=== PATIENT | female | born 1995 | race Caucasian/White ===

== ENCOUNTER → 2016-09-28 | Outpatient (REF) | payer OTHER | LOC: M SFHCCLAY 08:13 | PROVIDERS: ATTEND Nurse Practitioner | DX: K58.1 Irritable bowel syndrome with constipation (principal) ==

== ENCOUNTER 2016-10-27 23:19 | Emergency (ER) | payer OTHER ==
[2016-10-27] MEDS ORDERED: predniSONE 20 MG TAB As Ordered ONE (23:46)
[2016-10-27] MEDS ORDERED: METHOCARBAMOL 500 MG TAB As Ordered ONE (23:46)
[2016-10-27] MEDS ORDERED: ONDANSETRON 4 MG ORAL DISINTEGRATING TAB (S0181) As Ordered ONE (23:46)
[2016-10-27] MEDS ORDERED: traMADol 50 MG TAB As Ordered ONE (23:46)
[2016-10-28] MEDS ORDERED: NITROFURANTOIN (MACROBID) 100 MG CAP As Ordered ONE (00:37)
[2016-10-28 00:44] LABS: CONTROL LINE UCG INT CTR LINE PRESENT
[2016-10-28] MEDS ORDERED: KETOROLAC 30 MG/ML VIAL (J1885) As Ordered ONE (00:54)
[2016-10-28] MEDS ORDERED: MORPHINE 4 MG/ML 1ML SYRINGE As Ordered ONE (01:22)
--- NOTE | 2016-10-28 01:57 | EDDOCDS ---
Nurse's Notes [facility] Name: Elo Turner Age: 21 yrs Sex: Female : 1995 Arrival Date: 10/27/2016 Time: 23:19 Bed I2 / M2 Private MD: Candido Way Diagnosis: Lumbago with sciatica, left side Presentation: 10/27 23:26 Presenting complaint: Patient states: Left hip pain that radiates down leg. Started jo3 having issues 2 months ago and and pain became severe tonight. Acute neurological deficits are not present. Mechanism of Injury: No Mechanism of Injury. Adult Sepsis Screening: The patient does not have new or worsening altered mentation. Patient's respiratory rate is less than 22. Systolic blood pressure is greater than 100. Patient has a qSOFA score of 0- Negative Sepsis Screen. Suicide/Homicide risk assessment- the patient denies having any suicidal and/or homicidal ideations and does not present with any other emotional, behavioral or mental health complaints. Status: Patient is not a service desk specialist or dependent. Transition of care: patient was not received from another setting of care. 23:26 Acuity: ANGLE Level 4 jo3 23:26 Method Of Arrival: Walkin/Carried/Asstd jo3 Triage Assessment: 23:28 General: Appears uncomfortable, Behavior is appropriate for age, cooperative, crying. jo3 Pain: Pain currently is 10 out of 10 on a pain scale. HIV screening NA for this visit Offered previously. Neurological: Level of Consciousness is awake, alert, Oriented to person, place, time. Respiratory: Airway is patent Respiratory effort is even, unlabored. Derm: Skin is pink, warm & dry. 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 atenolol 50 mg Oral tab 1 tab once daily 2. Soma 350 mg Oral tab 1 tab prn 3. RONNIE (28) 3-0.02 mg Oral tab 1 tab once daily 4. tramadol 50 mg Oral tab q6hrs PRN - PMHx: fast HR with exercise; Hypertension; Migraines; - PSHx: 10 right knee surgeries; Colonoscopy x 2; left knee; - Social history: Smoking status: Patient states was never smoker of tobacco. No barriers to communication noted, The patient speaks fluent Spanish, Speaks appropriately for age. - Family history: Not pertinent. - : The pt / caregiver states he / she is not on anticoagulants. Home medication list is obtained from the patient. - Exposure Risk Screening:: None identified. Screenin/25 01:53 Screening information is obtained from the patient. Fall risk: No risks identified. slm Assistance ADL's: requires no assistance with activities of daily living. Abuse/DV Screen: The patient / caregiver reports he/she is: not in a situation that causes fear, pain or injury. Nutritional screening: No deficits noted. Advance Directives: Currently, there is no health care proxy. There is no active DNR order. There is no living will. There is no Power of Metalizing Machine Operator. Advance directive information has not previously been placed in an [facility] medical record. Further advance directive information is declined. home support is adequate. Assessment: 00:00 General: Appears uncomfortable, Behavior is cooperative. Pain:. slm 00:00 Pain: Location: left hip. Respiratory: No deficits noted. Musculoskeletal: Swelling slm absent. 01:51 General: Appears in no apparent distress, comfortable, Behavior is cooperative. slm General: pt ambulated out with steady gain pain improved . Respiratory: Airway is patent Respiratory effort is even, unlabored. Vital Signs: 10/27 23:20 BP 145 / 95; Pulse 149; Resp 18; Temp 99.4; Pulse Ox 100% ; Weight 86.18 kg; Height 5 jlm ft. 9 in. (175.26 cm); Pain 10/10; 23:35 Pulse 126 AP; jo3 10/28 01:01 BP 147 / 96; Pulse 98; Resp 18; Temp 98.4; Pulse Ox 99% on R/A; slm 01:54 BP 145 / 94; Pulse 101; Resp 18; Temp 98.9; Pulse Ox 99% ; Pain 3/10; slm 01:56 Pain 3/10; slm 10/27 23:20 Body Mass Index 28.06 (86.18 kg, 175.26 cm) [facility] Vitals: 10/27 23:20 Log In Time: October 27, 2016 at 23:20. [facility] ED Course: 23:19 Patient visited by Erna Welch, Surgical Garment Inspector. [facility] 23:[address] is Private Physician. jlm 23:19 Patient moved to Waiting jlm 23:22 Patient moved to Pre RCE jlm 23:27 Triage Initiated jo3 23:30 Patient moved to I2 / M2 jo3 23:31 Celso Davis RPA-C is PHCP. ck7 23:31 Abdirashid Davenport DO is Attending Physician. ck7 23:31 Patient visited by Celso Davis RPA-C. ck7 23:51 UA Sent. slm 23:59 Amarilis Ontiveros LPN is Primary Nurse. slm 10/28 00:00 Patient visited by Amarilis Ontiveros LPN. slm 00:31 UCG- In Lab Sent. slm 00:42 Patient visited by Celso Davis RPA-C. ck7 00:[address] is Referral Physician. ck7 01:02 Patient visited by Amarilis Ontiveros LPN. slm 01:20 PHCP role handed off by Celso Davis RPA-C mo1 01:20 Joaquin Childress PA is PHCP. mo1 01:[address] is Referral Physician. mo1 01:54 The patient / caregiver is instructed regarding the plan of care and ED course. Patient slm has correct armband on for positive identification. Bed in low position. Call light in reach. Side rails up X 1. 01:54 No IV's were initiated during this patient's visit. No procedures done that require slm assistance. Administered Medications: 10/27 23:59 Drug: traMADol 50 mg [tramadol 50 mg tablet (1 tabs)] Route: PO; slm 23:59 Drug: Methocarbamol 1 grams [methocarbamol 500 mg tablet (2 tabs)] Route: PO; slm 23:59 Drug: predniSONE 40 mg [prednisone 20 mg tablet (2 tabs)] Route: PO; slm 23:59 Drug: Ondansetron ODT 4 mg [ondansetron 4 mg disintegrating tablet (1 tabs)] Route: PO; slm 10/28 00:39 Drug: Nitrofurantoin 100 mg Route: PO; slm 00:59 Drug: ketorolac 60 mg [ketorolac 30 mg/mL (1 mL) injection solution (2 mL)] Route: IM; slm Site: right gluteus; 01:26 Drug: morphine 4 mg [morphine 4 mg/mL intravenous cartridge (1 mL)] Route: IM; Site: slm right deltoid; 01:56 Follow up: Pain 11/10 Adult slm Order Results: Lab Order: UA; SPEC'M 10/27/16 23:48 Test: APPEARANCE, URINE; Value: CLOUDY; Range: CLEAR; Abnormal: Above high normal; Status: F Test: COLOR, URINE; Value: YELLOW; Range: YELLOW; Status: F Test: PH,URINE; Value: 5.0; Range: 5.0-9.0; Units: UNITS; Status: F Test: SPECIFIC GRAVITY URINE AUTO; Value: 1.030; Range: 1.002-1.035; Status: F Test: PROTEIN, URINE AUTO; Value: NEGATIVE; Range: NEGATIVE; Units: mg/dL; Status: F Test: GLUCOSE, URINE (UA) AUTO; Value: NEGATIVE; Range: NEGATIVE; Units: mg/dL; Status: F Test: KETONE, URINE AUTO; Value: TRACE; Range: NEGATIVE; Abnormal: Above high normal; Units: mg/dL; Status: F Test: UROBILINOGEN, URINE AUTO; Value: 0.2; Range: 0.0-2.0; Units: mg/dL; Status: F Test: BILIRUBIN, URINE AUTO; Value: NEGATIVE; Range: NEGATIVE; Status: F Test: NITRITE, URINE AUTO; Value: NEGATIVE; Range: NEGATIVE; Status: F Test: LEUKOCYTE ESTERASE, URINE AUTO; Value: 1+; Range: NEGATIVE; Abnormal: Above high normal; Status: F Test: BLOOD, URINE BLOOD; Value: NEGATIVE; Range: NEGATIVE; Status: F Test: WBC, URINE AUTO; Value: 6; Range: 0-3; Abnormal: Above high normal; Units: /HPF; Status: F Test: RBC, URINE AUTO; Value: 2; Range: 0-3; Units: /HPF; Status: F Test: BACTERIA, URINE AUTO; Value: 2+; Range: NEGATIVE; Abnormal: Above high normal; Status: F Test: SQUAMOUS EPITHELIAL CELL UR AU; Value: 2; Range: 0-6; Units: /HPF; Status: F Test: MUCUS, URINE; Value: LARGE; Range: NEGATIVE; Status: F Test: HYALINE CAST, URINE AUTO; Value: 0; Range: 0-1; Units: /LPF; Status: F Lab Order: UCG- In Lab; SPEC'M 10/28/16 00:00 Test: URINE PREG TEST; Value: NEGATIVE; Range: NEGATIVE; Status: F Outcome: 00:53 Discharge ordered by Provider. ck7 01:39 Discharge ordered by Provider. mo1 01:51 Discharge Assessment: Patient awake, alert and oriented x 3. No cognitive and/or slm functional deficits noted. Patient verbalized understanding of disposition instructions. patient administered narcotics - yes. Pt provided with safe discharge. The following High Risk Discharge criteria are identified: None. Discharged to home ambulatory, with family. Condition: good Condition: improved. Discharge instructions given to patient, Instructed on discharge instructions, follow up and referral plans. medication usage, no driving heavy equipment, Demonstrated understanding of instructions, medications, Pt was receptive of discharge instructions/ teaching. Prescriptions given X 3. No special radiology studies were completed. Property :Personal belongings accompany Pt. 01:56 Patient left the ED. [facility] Signatures: Cuca Hansen,RN RN jo3 Celso Davis, RPA-C RPA-Cck7 Joaquin Childress PA PA mo1 Amarilis Ontiveros,IMANI MEDICAL RECORDS COORDINATOR slm Erna Welch, Surgical Garment Inspector [facility] MTDD
--- NOTE | 2016-10-28 01:57 | EDDOCDS ---
Physician Documentation [facility] Name: Elo Turner Age: 21 yrs Sex: Female : 1995 Arrival Date: 10/27/2016 Time: 23:19 Bed I2 / M2 Private MD: Candido Way Disposition: 10/28/16 01:39 Discharged to Home/Self Care. Impression: Lumbago with sciatica, left side. - Condition is Stable. - Discharge Instructions: Back Pain, Adult, Sciatica. - Prescriptions for [place] 5- 325 mg Oral Tablet - take 1 tablet by ORAL route every 6 hours As needed MDD: 4 tabs; 20 tablet. Robaxin 500 mg Oral Tablet - take 2 tablet by ORAL route every 6 hours As needed; 40 tablet. Macrobid 100 mg Oral Capsule - take 100 milligram by ORAL route every 12 hours for 10 days; 20 capsule. - Medication Reconciliation, Local Pharmacy Hours, Work Release Form - 2 day form. - Follow up: [address]; When: Call to arrange an appointment; Reason: Recheck today's complaints, Continuance of care. - Problem is an acute exacerbation. - Symptoms have improved. Historical: - Allergies: Amoxicillin (Vomit); - Home Meds: 1. atenolol 50 mg Oral tab 1 tab once daily 2. Soma 350 mg Oral tab 1 tab prn 3. RONNIE (28) 3-0.02 mg Oral tab 1 tab once daily 4. tramadol 50 mg Oral tab q6hrs PRN - PMHx: fast HR with exercise; Hypertension; Migraines; - PSHx: 10 right knee surgeries; Colonoscopy x 2; left knee; - Social history: Smoking status: Patient states was never smoker of tobacco. No barriers to communication noted, The patient speaks fluent Upper Sorbian, Speaks appropriately for age. - Family history: Not pertinent. - : The pt / caregiver states he / she is not on anticoagulants. Home medication list is obtained from the patient. - Exposure Risk Screening:: None identified. 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 9 in. (175.26 cm); Pain 10/10; 23:35 Pulse 126 AP; jo3 10/28 01:01 BP 147 / 96; Pulse 98; Resp 18; Temp 98.4; Pulse Ox 99% on R/A; slm 01:54 BP 145 / 94; Pulse 101; Resp 18; Temp 98.9; Pulse Ox 99% ; Pain 3/10; slm 01:56 Pain 3/10; slm 10/27 23:20 Body Mass Index 28.06 (86.18 kg, 175.26 cm) [facility] MDM: 10/27 23:41 traMADol 50 mg PO once ordered. ck7 23:41 Methocarbamol 1 grams PO once ordered. ck7 23:41 predniSONE 40 mg PO once; administer with food or milk ordered. ck7 23:41 Ondansetron ODT Oral Disintegrating Tablet 4 mg PO once ordered. ck7 23:42 UA Ordered. EDMS 23:44 Spine. Lumbosacral, Complete Ordered. EDMS 10/28 00:03 UA Reviewed. ck7 00:27 Nitrofurantoin 100 mg PO once ordered. ck7 00:29 UCG- In Lab Ordered. EDMS 00:50 UCG- In Lab Reviewed. ck7 00:52 ketorolac 60 mg IM once ordered. ck7 00:52 Recheck Vital Signs, perform reassessment and enter into [employer] ordered. ck7 01:00 Financial registration complete. hs2 01:21 morphine 4 mg IM once ordered. mo1 Administered Medications: 10/27 23:59 Drug: traMADol 50 mg [tramadol 50 mg tablet (1 tabs)] Route: PO; [facility] 23:59 Drug: Methocarbamol 1 grams [methocarbamol 500 mg tablet (2 tabs)] Route: PO; m 23:59 Drug: predniSONE 40 mg [prednisone 20 mg tablet (2 tabs)] Route: PO; m 23:59 Drug: Ondansetron ODT 4 mg [ondansetron 4 mg disintegrating tablet (1 tabs)] Route: PO; [facility] 10/28 00:39 Drug: Nitrofurantoin 100 mg Route: PO; [facility] 00:59 Drug: ketorolac 60 mg [ketorolac 30 mg/mL (1 mL) injection solution (2 mL)] Route: IM; slm Site: right gluteus; 01:26 Drug: morphine 4 mg [morphine 4 mg/mL intravenous cartridge (1 mL)] Route: IM; Site: slm right deltoid; :56 Follow up: Pain 11/10 Adult slm Signatures: Dispatcher [employer] Cuca Durham,TIANA RN jo3 Celso Davis, RPA-C RPA-Cck7 Joaquin Childress PA PA mo1 Amarilis Ontiveros,IMANI CLINICAL CYTOGENETICIST slm Janet Beyer, Reg Reg hs2 MTDD
--- NOTE | 2016-10-28 07:25 | REP ---
Clinical: Deformity swelling. Trauma. Technique: AP, lateral, bilateral oblique and cone down views of the lumbosacral spine. Findings: Moderate focal degenerative disc osteophyte complex at the L5-S1 level includes endplate sclerosis with disc space narrowing and anterior spurring. Alignment and lordosis maintained. There is no acute fracture / compression injury or subluxation. Impression: Moderate focal degenerative changes at the L5-S1 level. Signed by Eber Sue MD 10/28/2016 07:17 A
--- NOTE | 2016-10-30 02:57 | EDDOCDS ---
Physician Documentation [facility] Name: Elo Turner Age: 21 yrs Sex: Female : 1995 Arrival Date: 10/27/2016 Time: 23:19 Bed I2 / M2 Private MD: Candido Way Disposition: 10/28/16 01:39 Discharged to Home/Self Care. Impression: Lumbago with sciatica, left side. - Condition is Stable. - Discharge Instructions: Back Pain, Adult, Sciatica. - Prescriptions for [place] 5- 325 mg Oral Tablet - take 1 tablet by ORAL route every 6 hours As needed MDD: 4 tabs; 20 tablet. Robaxin 500 mg Oral Tablet - take 2 tablet by ORAL route every 6 hours As needed; 40 tablet. Macrobid 100 mg Oral Capsule - take 100 milligram by ORAL route every 12 hours for 10 days; 20 capsule. - Medication Reconciliation, Local Pharmacy Hours, Work Release Form - 2 day form. - Follow up: [address]; When: Call to arrange an appointment; Reason: Recheck today's complaints, Continuance of care. - Problem is an acute exacerbation. - Symptoms have improved. Historical: - Allergies: Amoxicillin (Vomit); - Home Meds: 1. atenolol 50 mg Oral tab 1 tab once daily 2. Soma 350 mg Oral tab 1 tab prn 3. RONNIE (28) 3-0.02 mg Oral tab 1 tab once daily 4. tramadol 50 mg Oral tab q6hrs PRN - PMHx: fast HR with exercise; Hypertension; Migraines; - PSHx: 10 right knee surgeries; Colonoscopy x 2; left knee; - Social history: Smoking status: Patient states was never smoker of tobacco. No barriers to communication noted, The patient speaks fluent Nepali, Speaks appropriately for age. - Family history: Not pertinent. - : The pt / caregiver states he / she is not on anticoagulants. Home medication list is obtained from the patient. - Exposure Risk Screening:: None identified. 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 9 in. (175.26 cm); Pain 10/10; 23:35 Pulse 126 AP; jo3 10/28 01:01 BP 147 / 96; Pulse 98; Resp 18; Temp 98.4; Pulse Ox 99% on R/A; slm 01:54 BP 145 / 94; Pulse 101; Resp 18; Temp 98.9; Pulse Ox 99% ; Pain 3/10; slm 01:56 Pain 3/10; slm 10/27 23:20 Body Mass Index 28.06 (86.18 kg, 175.26 cm) [facility] MDM: 10/27 23:41 traMADol 50 mg PO once ordered. ck7 23:41 Methocarbamol 1 grams PO once ordered. ck7 23:41 predniSONE 40 mg PO once; administer with food or milk ordered. ck7 23:41 Ondansetron ODT Oral Disintegrating Tablet 4 mg PO once ordered. ck7 23:42 UA Ordered. EDMS 23:44 Spine. Lumbosacral, Complete Ordered. EDMS 10/28 00:03 UA Reviewed. ck7 00:27 Nitrofurantoin 100 mg PO once ordered. ck7 00:29 UCG- In Lab Ordered. EDMS 00:50 UCG- In Lab Reviewed. ck7 00:52 ketorolac 60 mg IM once ordered. ck7 00:52 Recheck Vital Signs, perform reassessment and enter into [employer] ordered. ck7 01:00 Financial registration complete. hs2 01:21 morphine 4 mg IM once ordered. mo1 04:57 [facility] Payment Agreement was scanned into [employer] and attached to record. hs2 08:34 T-Sheet-- Draft Copy was scanned into [employer] and attached to record. [facility] Administered Medications: 10/27 23:59 Drug: traMADol 50 mg [tramadol 50 mg tablet (1 tabs)] Route: PO; slm 23:59 Drug: Methocarbamol 1 grams [methocarbamol 500 mg tablet (2 tabs)] Route: PO; slm 23:59 Drug: predniSONE 40 mg [prednisone 20 mg tablet (2 tabs)] Route: PO; slm 23:59 Drug: Ondansetron ODT 4 mg [ondansetron 4 mg disintegrating tablet (1 tabs)] Route: PO; m 10/28 00:39 Drug: Nitrofurantoin 100 mg Route: PO; slm 00:59 Drug: ketorolac 60 mg [ketorolac 30 mg/mL (1 mL) injection solution (2 mL)] Route: IM; slm Site: right gluteus; 01:26 Drug: morphine 4 mg [morphine 4 mg/mL intravenous cartridge (1 mL)] Route: IM; Site: slm right deltoid; 01:56 Follow up: Pain 11/10 Adult sl Signatures: Dispatcher [employer] EDCuca Palma RN RN joCelso Clifton, RPA-C RPA-Cck7 Joaquin Childress PA PA mo1 Amarilis Ontiveros,LEARNING DEVELOPMENT SPECIALIST LEARNING DEVELOPMENT SPECIALIST [facility] Janet Beyer, Reg Reg hs2 Trini Myles The chart was reviewed and I authenticate all verbal orders and agree with the evaluation and treatment provided.Attachments: 04:57 [facility] Payment Agreement hs2 08:34 T-Sheet-- Draft Copy [facility] Chart Complete MTDD
--- NOTE | 2016-10-30 02:57 | EDDOCDS ---
[facility] Name: Elo Turner Age: 21 yrs Sex: Female : 1995 Arrival Date: 10/27/2016 Time: 23:19 Bed I2 / M2 Private MD: Candido Way Diagnosis: Lumbago with sciatica, left side Presentation: 10/27 23:26 Presenting complaint: Patient states: Left hip pain that radiates down leg. Started jo3 having issues 2 months ago and and pain became severe tonight. Acute neurological deficits are not present. Mechanism of Injury: No Mechanism of Injury. Adult Sepsis Screening: The patient does not have new or worsening altered mentation. Patient's respiratory rate is less than 22. Systolic blood pressure is greater than 100. Patient has a qSOFA score of 0- Negative Sepsis Screen. Suicide/Homicide risk assessment- the patient denies having any suicidal and/or homicidal ideations and does not present with any other emotional, behavioral or mental health complaints. 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 Transition of care: patient was not received from another setting of care. 23:26 Acuity: ANGLE Level 4 jo3 23:26 Method Of Arrival: Walkin/Carried/Asstd jo3 Triage Assessment: 23:28 General: Appears uncomfortable, Behavior is appropriate for age, cooperative, crying. jo3 Pain: Pain currently is 10 out of 10 on a pain scale. HIV screening NA for this visit Offered previously. Neurological: Level of Consciousness is awake, alert, Oriented to person, place, time. Respiratory: Airway is patent Respiratory effort is even, unlabored. Derm: Skin is pink, warm & dry. 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 atenolol 50 mg Oral tab 1 tab once daily 2. Soma 350 mg Oral tab 1 tab prn 3. RONNIE (28) 3-0.02 mg Oral tab 1 tab once daily 4. tramadol 50 mg Oral tab q6hrs PRN - PMHx: fast HR with exercise; Hypertension; Migraines; - PSHx: 10 right knee surgeries; Colonoscopy x 2; left knee; - Social history: Smoking status: Patient states was never smoker of tobacco. No barriers to communication noted, The patient speaks fluent Divehi, Speaks appropriately for age. - Family history: Not pertinent. - : The pt / caregiver states he / she is not on anticoagulants. Home medication list is obtained from the patient. - Exposure Risk Screening:: None identified. Screenin/25 01:53 Screening information is obtained from the patient. Fall risk: No risks identified. slm Assistance ADL's: requires no assistance with activities of daily living. Abuse/DV Screen: The patient / caregiver reports he/she is: not in a situation that causes fear, pain or injury. Nutritional screening: No deficits noted. Advance Directives: Currently, there is no health care proxy. There is no active DNR order. There is no living will. There is no Power of Grain Cleaner. Advance directive information has not previously been placed in an [facility] medical record. Further advance directive information is declined. home support is adequate. Assessment: 00:00 General: Appears uncomfortable, Behavior is cooperative. Pain:. slm 00:00 Pain: Location: left hip. Respiratory: No deficits noted. Musculoskeletal: Swelling slm absent. 01:51 General: Appears in no apparent distress, comfortable, Behavior is cooperative. slm General: pt ambulated out with steady gain pain improved . Respiratory: Airway is patent Respiratory effort is even, unlabored. Vital Signs: 10/27 23:20 BP 145 / 95; Pulse 149; Resp 18; Temp 99.4; Pulse Ox 100% ; Weight 86.18 kg; Height 5 jlm ft. 9 in. (175.26 cm); Pain 10/10; 23:35 Pulse 126 AP; jo3 10/28 01:01 BP 147 / 96; Pulse 98; Resp 18; Temp 98.4; Pulse Ox 99% on R/A; slm 01:54 BP 145 / 94; Pulse 101; Resp 18; Temp 98.9; Pulse Ox 99% ; Pain 3/10; slm 01:56 Pain 3/10; slm 10/27 23:20 Body Mass Index 28.06 (86.18 kg, 175.26 cm) [facility] Vitals: 10/27 23:20 Log In Time: October 27, 2016 at 23:20. [facility] ED Course: 23:19 Patient visited by Erna Welch, Cargo Broker. [facility] 23:[address] is Private Physician. jlm 23:19 Patient moved to Waiting jlm 23:22 Patient moved to Pre RCE jlm 23:27 Triage Initiated jo3 23:30 Patient moved to I2 / M2 jo3 23:31 Celso Davis RPA-C is PHCP. ck7 23:31 Abdirashid Davenport DO is Attending Physician. ck7 23:31 Patient visited by Celso Davis RPA-C. ck7 23:51 UA Sent. slm 23:59 Amarilis Ontiveros LPN is Primary Nurse. slm 02 00:00 Patient visited by Amarilis Ontiveros LPN. slm 00:31 UCG- In Lab Sent. slm 00:42 Patient visited by Celso Davis RPA-C. ck7 00:[address] is Referral Physician. ck7 01:02 Patient visited by Amarilis Ontiveros LPN. slm 01:20 PHCP role handed off by Celso Davis RPA-C mo1 01:20 Joaquin Childress PA is PHCP. mo1 01:[address] is Referral Physician. mo1 01:54 The patient / caregiver is instructed regarding the plan of care and ED course. Patient slm has correct armband on for positive identification. Bed in low position. Call light in reach. Side rails up X 1. 01:54 No IV's were initiated during this patient's visit. No procedures done that require slm assistance. 04:57 [facility] Payment Agreement was scanned into PayPay and attached to record. hs2 07:34 Spine. Lumbosacral, Complete Returned. EDMS 08:34 T-Sheet-- Draft Copy was scanned into PayPay and attached to record. [facility] Administered Medications: 10/27 23:59 Drug: traMADol 50 mg [tramadol 50 mg tablet (1 tabs)] Route: PO; slm 23:59 Drug: Methocarbamol 1 grams [methocarbamol 500 mg tablet (2 tabs)] Route: PO; slm 23:59 Drug: predniSONE 40 mg [prednisone 20 mg tablet (2 tabs)] Route: PO; slm 23:59 Drug: Ondansetron ODT 4 mg [ondansetron 4 mg disintegrating tablet (1 tabs)] Route: PO; [facility] 10/28 00:39 Drug: Nitrofurantoin 100 mg Route: PO; [facility] 00:59 Drug: ketorolac 60 mg [ketorolac 30 mg/mL (1 mL) injection solution (2 mL)] Route: IM; [facility] Site: right gluteus; 01:26 Drug: morphine 4 mg [morphine 4 mg/mL intravenous cartridge (1 mL)] Route: IM; Site: slm right deltoid; 01:56 Follow up: Pain 11/10 Adult [facility] Order Results: Lab Order: UA; SPEC'M 10/27/16 23:48 Test: APPEARANCE, URINE; Value: CLOUDY; Range: CLEAR; Abnormal: Above high normal; Status: F Test: COLOR, URINE; Value: YELLOW; Range: YELLOW; Status: F Test: PH,URINE; Value: 5.0; Range: 5.0-9.0; Units: UNITS; Status: F Test: SPECIFIC GRAVITY URINE AUTO; Value: 1.030; Range: 1.002-1.035; Status: F Test: PROTEIN, URINE AUTO; Value: NEGATIVE; Range: NEGATIVE; Units: mg/dL; Status: F Test: GLUCOSE, URINE (UA) AUTO; Value: NEGATIVE; Range: NEGATIVE; Units: mg/dL; Status: F Test: KETONE, URINE AUTO; Value: TRACE; Range: NEGATIVE; Abnormal: Above high normal; Units: mg/dL; Status: F Test: UROBILINOGEN, URINE AUTO; Value: 0.2; Range: 0.0-2.0; Units: mg/dL; Status: F Test: BILIRUBIN, URINE AUTO; Value: NEGATIVE; Range: NEGATIVE; Status: F Test: NITRITE, URINE AUTO; Value: NEGATIVE; Range: NEGATIVE; Status: F Test: LEUKOCYTE ESTERASE, URINE AUTO; Value: 1+; Range: NEGATIVE; Abnormal: Above high normal; Status: F Test: BLOOD, URINE BLOOD; Value: NEGATIVE; Range: NEGATIVE; Status: F Test: WBC, URINE AUTO; Value: 6; Range: 0-3; Abnormal: Above high normal; Units: /HPF; Status: F Test: RBC, URINE AUTO; Value: 2; Range: 0-3; Units: /HPF; Status: F Test: BACTERIA, URINE AUTO; Value: 2+; Range: NEGATIVE; Abnormal: Above high normal; Status: F Test: SQUAMOUS EPITHELIAL CELL UR AU; Value: 2; Range: 0-6; Units: /HPF; Status: F Test: MUCUS, URINE; Value: LARGE; Range: NEGATIVE; Status: F Test: HYALINE CAST, URINE AUTO; Value: 0; Range: 0-1; Units: /LPF; Status: F Lab Order: UCG- In Lab; SPEC'M 10/28/16 00:00 Test: URINE PREG TEST; Value: NEGATIVE; Range: NEGATIVE; Status: F Radiology Order: Spine. Lumbosacral, Complete Test: Spine. Lumbosacral, Complete REASON FOR EXAMINATION: Deformity/Swelling; Clinical: Deformity swelling. Trauma.; ; Technique: AP, lateral, bilateral oblique and cone down views of the lumbosacral; spine.; ; Findings:; Moderate focal degenerative disc osteophyte complex at the L5-S1 level includes; endplate sclerosis with disc space narrowing and anterior spurring. Alignment; and lordosis maintained. There is no acute fracture / compression injury or; subluxation.; ; Impression:; Moderate focal degenerative changes at the L5-S1 level.; ; ; Signed by; Eber Sue MD 10/28/2016 07:17 A; Outcome: 00:53 Discharge ordered by Provider. ck7 01:39 Discharge ordered by Provider. mo1 01:51 Discharge Assessment: Patient awake, alert and oriented x 3. No cognitive and/or slm functional deficits noted. Patient verbalized understanding of disposition instructions. patient administered narcotics - yes. Pt provided with safe discharge. The following High Risk Discharge criteria are identified: None. Discharged to home ambulatory, with family. Condition: good Condition: improved. Discharge instructions given to patient, Instructed on discharge instructions, follow up and referral plans. medication usage, no driving heavy equipment, Demonstrated understanding of instructions, medications, Pt was receptive of discharge instructions/ teaching. Prescriptions given X 3. No special radiology studies were completed. Property :Personal belongings accompany Pt. 01:56 Patient left the ED. slm Signatures: Dispatcher [employer] EDMS Ccua Hansen RN RN jo3 Celso Davis, RPA-C RPA-Cck7 Joaquin Childress PA PA mo1 Amarilis Ontiveros,BOWL TURNER BOWL TURNER slErna Hernandez, Cargo Broker Unit jlm Janet Beyer, Reg Reg hs2 Shameka, Trini floyd Chart Complete MTDD
--- NOTE | 2016-10-30 02:57 | EDDOCDS ---
Physician Documentation [facility] Name: Elo Turner Age: 21 yrs Sex: Female : 1995 Arrival Date: 10/27/2016 Time: 23:19 Bed I2 / M2 Private MD: Candido Way Disposition: 10/28/16 01:39 Discharged to Home/Self Care. Impression: Lumbago with sciatica, left side. - Condition is Stable. - Discharge Instructions: Back Pain, Adult, Sciatica. - Prescriptions for [place] 5- 325 mg Oral Tablet - take 1 tablet by ORAL route every 6 hours As needed MDD: 4 tabs; 20 tablet. Robaxin 500 mg Oral Tablet - take 2 tablet by ORAL route every 6 hours As needed; 40 tablet. Macrobid 100 mg Oral Capsule - take 100 milligram by ORAL route every 12 hours for 10 days; 20 capsule. - Medication Reconciliation, Local Pharmacy Hours, Work Release Form - 2 day form. - Follow up: [address]; When: Call to arrange an appointment; Reason: Recheck today's complaints, Continuance of care. - Problem is an acute exacerbation. - Symptoms have improved. Historical: - Allergies: Amoxicillin (Vomit); - Home Meds: 1. atenolol 50 mg Oral tab 1 tab once daily 2. Soma 350 mg Oral tab 1 tab prn 3. RONNIE (28) 3-0.02 mg Oral tab 1 tab once daily 4. tramadol 50 mg Oral tab q6hrs PRN - PMHx: fast HR with exercise; Hypertension; Migraines; - PSHx: 10 right knee surgeries; Colonoscopy x 2; left knee; - Social history: Smoking status: Patient states was never smoker of tobacco. No barriers to communication noted, The patient speaks fluent Mohawk, Speaks appropriately for age. - Family history: Not pertinent. - : The pt / caregiver states he / she is not on anticoagulants. Home medication list is obtained from the patient. - Exposure Risk Screening:: None identified. 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 9 in. (175.26 cm); Pain 10/10; 23:35 Pulse 126 AP; jo3 10/28 01:01 BP 147 / 96; Pulse 98; Resp 18; Temp 98.4; Pulse Ox 99% on R/A; slm 01:54 BP 145 / 94; Pulse 101; Resp 18; Temp 98.9; Pulse Ox 99% ; Pain 3/10; slm 01:56 Pain 3/10; slm 10/27 23:20 Body Mass Index 28.06 (86.18 kg, 175.26 cm) [facility] MDM: 10/27 23:41 traMADol 50 mg PO once ordered. ck7 23:41 Methocarbamol 1 grams PO once ordered. ck7 23:41 predniSONE 40 mg PO once; administer with food or milk ordered. ck7 23:41 Ondansetron ODT Oral Disintegrating Tablet 4 mg PO once ordered. ck7 23:42 UA Ordered. EDMS 23:44 Spine. Lumbosacral, Complete Ordered. EDMS 10/28 00:03 UA Reviewed. ck7 00:27 Nitrofurantoin 100 mg PO once ordered. ck7 00:29 UCG- In Lab Ordered. EDMS 00:50 UCG- In Lab Reviewed. ck7 00:52 ketorolac 60 mg IM once ordered. ck7 00:52 Recheck Vital Signs, perform reassessment and enter into [place] ordered. ck7 01:00 Financial registration complete. hs2 01:21 morphine 4 mg IM once ordered. mo1 04:57 [facility] Payment Agreement was scanned into [employer] and attached to record. hs2 08:34 T-Sheet-- Draft Copy was scanned into Syntricity and attached to record. [facility] Administered Medications: 10/27 23:59 Drug: traMADol 50 mg [tramadol 50 mg tablet (1 tabs)] Route: PO; slm 23:59 Drug: Methocarbamol 1 grams [methocarbamol 500 mg tablet (2 tabs)] Route: PO; slm 23:59 Drug: predniSONE 40 mg [prednisone 20 mg tablet (2 tabs)] Route: PO; slm 23:59 Drug: Ondansetron ODT 4 mg [ondansetron 4 mg disintegrating tablet (1 tabs)] Route: PO; m 10/28 00:39 Drug: Nitrofurantoin 100 mg Route: PO; slm 00:59 Drug: ketorolac 60 mg [ketorolac 30 mg/mL (1 mL) injection solution (2 mL)] Route: IM; slm Site: right gluteus; 01:26 Drug: morphine 4 mg [morphine 4 mg/mL intravenous cartridge (1 mL)] Route: IM; Site: slm right deltoid; 01:56 Follow up: Pain 11/10 Adult sl Signatures: Dispatcher [employer] EDCuca Palma RN RN joCelso Clifton, RPA-C RPA-Cck7 Joaquin Childress PA PA mo1 Amarilis Ontiveros,MATE FIRST MATE FIRST [facility] Janet Beyer, Reg Reg hs2 Trini Myles The chart was reviewed and I authenticate all verbal orders and agree with the evaluation and treatment provided.Attachments: 04:57 [facility] Payment Agreement hs2 08:34 T-Sheet-- Draft Copy [facility] Chart Complete MTDD
== END 2016-10-28 01:56 | disposition home or self-care (01) ==
LOC: M ED 23:19
DX: M54.42 Lumbago with sciatica, left side (principal); N39.0 Urinary tract infection, site not specified; I10 Essential (primary) hypertension; G43.909 Migraine, unspecified, not intractable, without status migrainosus; Z79.899 Other long term (current) drug therapy; Z79.3 Long term (current) use of hormonal contraceptives; Z88.0 Allergy status to penicillin
CPT/HCPCS: 72110; 81001; 84703; 96372; 99284; J1885

== ENCOUNTER → 2016-11-15 | Outpatient (REF) | payer OTHER | LOC: M SFHCWAGY 15:48 | PROVIDERS: ATTEND Nurse Practitioner Family | DX: Z12.4 Encounter for screening for malignant neoplasm of cervix (principal); Z11.3 Encounter for screening for infections with a predominantly sexual mode of transmission | CPT/HCPCS: 87491; 87591; G0123 ==

== ENCOUNTER 2017-01-12 21:46 | Emergency (ER) | payer BC, OTHER ==
[~2017-01-12] VITALS: Ht 177.8 cm; Wt 81.6 kg
[2017-01-12] MEDS ORDERED: TRAM50TA2 (22:05)
[2017-01-12] MEDS ORDERED: HYDR-3713 (22:05)
[2017-01-12] MEDS ORDERED: ATEN50TA2 (22:05)
[2017-01-12] MEDS ORDERED: CARI350T20 (22:05)
[2017-01-12] MEDS ORDERED: NIKK1TAB (22:05)
[2017-01-12] MEDS ORDERED: MORPHINE 4 MG/ML 1ML SYRINGE IV ONE (23:00)
[2017-01-12] MEDS ORDERED: KETOROLAC 30 MG/ML VIAL (J1885) IV ONE (23:00)
[2017-01-12] MEDS ORDERED: ONDANSETRON 4MG/2ML VIAL (J2405) As Ordered ONE (23:34)
[2017-01-12] MEDS ORDERED: ONDANSETRON 4MG/2ML VIAL (J2405) IV ONE (23:45)
[2017-01-13 01:00] LABS: BASO % 0.3 % (0.0-1.0); EOS # 0.2 K/mm3 (0.0-0.50); EOS % 2.1 % (0.0-3.0); LARGE UNSTAINED CELL # 0.2 K/mm3 (0.0-0.4); LARGE UNSTAINED CELL % 1.9 % (0.0-4.0); LYMPH # 2.5 K/mm3 (1.5-6.5); LYMPH % 28.5 % (24.0-44.0); MEAN CORPUSCULAR HEMOGLOBIN 29.5 pg (27.0-33.0); MEAN CORPUSCULAR VOLUME 89.6 fl (80.0-96.0); MONO # 0.5 K/mm3 (0.0-0.8); MONO % 5.6 % (0.0-5.0); NEUTROPHILS # 5.4 K/mm3 (1.8-7.7); NEUTROPHILS % 61.5 % (36.0-66.0); PLATELET COUNT, AUTOMATED 264 k/mm3 (150-450); RED CELL DISTRIBUTION WIDTH 12.6 % (11.5-14.5); WHITE BLOOD COUNT 8.7 K/mm3 (4.0-10.0)
[2017-01-13 01:27] LABS: ANION GAP 8 MEQ/L (8-16); BLOOD UREA NITROGEN 16 MG/DL (7-18); CALCIUM LEVEL 8.5 MG/DL (8.5-10.1); CARBON DIOXIDE LEVEL 28 MEQ/L (21-32); CHLORIDE LEVEL 107 MEQ/L (98-107); CREATININE FOR GFR 0.74 MG/DL (0.55-1.02); GLOMERULAR FILTRATION RATE > 60.0 (>60); GLUCOSE, FASTING 84 MG/DL (70-105); POTASSIUM SERUM 4.4 MEQ/L (3.5-5.1); SODIUM LEVEL 143 MEQ/L (136-145)
[2017-01-13] MEDS ORDERED: HYDROmorphone HCL 1 MG/ML SYRINGE (J1170) IV PRN (01:30)
--- NOTE | 2017-01-13 01:30 | REPUSA ---
HISTORY: Trauma. COMPARISON: None. TECHNIQUE: Multiple thin-section contiguous helically-acquired axially-displayed computed tomographic images of the cervical spine are obtained from skull base inferiorly through T1, with images filmed at soft tissue and bone window. 2D Sagittal and coronal reformatted images are performed. FINDINGS: There is normal cervical vertebral body height and alignment on this supine, non-weight bearing exam. Vertebral body mineralization is normal. All of the intervertebral disc spaces have normal height and contour. There is no herniated nucleus p ulposus, canal or foraminal stenosis. No paraspinal masses or collections. IMPRESSION: Normal CT of the cervical spine. Thank you for your kind referral of this patient.
[2017-01-13] MEDS ORDERED: VALI5TAB PO (02:30)
[2017-01-13] MEDS ORDERED: NAPR500T PO (02:30)
[2017-01-13] MEDS ORDERED: OXYCODONE/APAP 5MG/325MG(BULK FOR ED) 1 TABLET PO ONE (02:30)
[2017-01-13] MEDS ORDERED: PERC5TAB6 PO (02:30)
[2017-01-13 02:42] VITALS: BP 129/82
== END 2017-01-13 02:43 | disposition home or self-care (01) ==
LOC: M ED 21:46
DX: S16.1XXA Strain of muscle, fascia and tendon at neck level, initial encounter (principal); X58.XXXA Exposure to other specified factors, initial encounter; Y92.89 Other specified places as the place of occurrence of the external cause; Y93.89 Activity, other specified; Y99.8 Other external cause status; Z88.0 Allergy status to penicillin; Z79.899 Other long term (current) drug therapy
CPT/HCPCS: 70450; 72125; 80048; 85025; 96374; 96375; 99283; J1170; J1885; J2405; J3360

== ENCOUNTER 2017-03-16 00:51 | Emergency (ER) | payer BC, OTHER ==
[~2017-03-16] VITALS: Ht 175.3 cm; Wt 88.6 kg
[~2017-03-16 00:51] MED LIST: ATEN50TA2; CARI350T; HYDR-3713; NAPR500T PO; NIKK1TAB; PERC5TAB12 PO; TRAM50TA2; VALI5TAB PO
[2017-03-16] MEDS ORDERED: SOMA350T PO (00:59)
[2017-03-16] MEDS ORDERED: PERCOCET 5MG/325MG TAB PO ONE (06:15)
[2017-03-16] MEDS ORDERED: diazePAM 5 MG TAB PO ONE (06:15)
[2017-03-16] MEDS ORDERED: KETOROLAC 60 MG/2 ML VIAL (J1885) IM ONE (06:15)
[2017-03-16] MEDS ORDERED: ONDANSETRON 4 MG ORAL DISINTEGRATING TAB (S0181) PO ONE (06:30)
[2017-03-16] MEDS ORDERED: MORPHINE 4 MG/ML 1ML SYRINGE IM ONE (07:00)
[2017-03-16] MEDS ORDERED: MORPHINE 10 MG/ML 1ML VIAL IM ONE (07:00)
[2017-03-16] MEDS ORDERED: VALI5TAB PO (07:41)
[2017-03-16] MEDS ORDERED: IBUP80TA PO (07:41)
[2017-03-16] MEDS ORDERED: PERC5TAB12 PO (07:41)
[2017-03-16 08:21] VITALS: BP 119/77
== END 2017-03-16 08:23 | disposition home or self-care (01) ==
LOC: M ED 00:51
DX: S33.5XXA Sprain of ligaments of lumbar spine, initial encounter (principal); X50.0XXA Overexertion from strenuous movement or load, initial encounter; Y92.89 Other specified places as the place of occurrence of the external cause; Y93.89 Activity, other specified; Y99.8 Other external cause status; J45.909 Unspecified asthma, uncomplicated; G43.909 Migraine, unspecified, not intractable, without status migrainosus; M54.9 Dorsalgia, unspecified; G89.29 Other chronic pain; Z88.0 Allergy status to penicillin; Z79.899 Other long term (current) drug therapy; Z79.1 Long term (current) use of non-steroidal anti-inflammatories (NSAID)
CPT/HCPCS: 96372; 99282; J1885

== ENCOUNTER → 2017-05-16 | Outpatient (CLI) | payer BC, OTHER ==
[~2017-05-16] MED LIST changes: +IBUP80TA PO; +SOMA350T PO
--- NOTE | 2017-06-02 00:31 | ECWPNPC ---
PATIENT NAME: DAVI FOUNTAIN : 1995 GENDER: FEMALE VISIT DATE: 05/16/2017 DISCHARGE DATE: 05/16/17 1451 VISIT LOCKED DATE TIME: PHYSICIAN: ROBERT ODELL RESOURCE: ROBERT ODELL REASON FOR APPOINTMENT 1. LOW BACK HISTORY OF PRESENT ILLNESS FALL RISK SCREENING: SCREENING :NO FALLS IN THE PAST YEAR PAIN SCREENING: PATIENT HAS A COMPLAINT OF ACUTE OR CHRONIC PAIN :YES TODAY'S VISIT: NOTES: REFERRED TO [facility] FROM DR ZACHARY HURT FOR LOW BACK PAIN . HAS ALSO BEEN SEEN BY DR STODDARD AT [facility] THE SAME ISSUE AND THEY ARE REQUESTING INTERVENTIONAL TREATMENT. PCP IS DR DELGADO MILTON. ONSET WAS 6-7 YEARS AGO. NO SPECIFIC INJRY BUT WAS VERY ACTIVE IN [employer]ULT[employer]ORTS. PAIN WAS GRADUALLY GETTING WORSE UNTIL 1 YEAR AGO WHEN STARTED WORKING. WAS HAVING SUCH SEVERE PAIN COULD NOT STAND STRAIGHT OR WALK. HAS SI JOINT PAIN IN LEFT, MORE NUMBNESS IN RIGHT TO LEVEL OF THE FOOT, OR SEATED ON THE TOILET. PAIN CAN DISRUPT SLEEP. USES MUSCLE RELAXER AT NITE. HAS HAD CHIRO, TPI, PT, INTRALAMIAR EPIDURAL WITHOUT FLUOUO AT [facility]. HAD NO RELIEF FROM THIS. . CURRENT MEDICATIONS TAKING TRAMADOL HCL 50 MG TABLET 1 TABLET NEEDED ORALLY EVERY 6 HRS- FROM ORTHO TAKING HAIR SKIN AND NAILS FORMULA - TABLET 1 ORALLY DAILY TAKING ATENOLOL 50 MG TABLET 1 TABLET ORALLY DAILY TAKING GABAPENTIN 400 MG CAPSULE 1 CAPSULE ORALLY THREE TIMES A DAY TAKING HYDROCODONE-ACETAMINOPHEN 5-325 MG TABLET 1 TABLET NEEDED ORALLY EVERY 6 HRS TAKING AZELASTINE HCL 0.1 % SOLUTION 1 PUFF IN EACH NOSTRIL NASALLY TWICE A DAY TAKING ELVIN 3-0.02 MG TABLET 1 TABLET ORALLY ONCE A DAY TAKING IBUPROFEN 800 MG TABLET 1 TABLET WITH FOOD OR MILK ORALLY THREE TIMES A DAY TAKING CARISOPRODOL 350 MG TABLET 1 TABLET NEEDED ORALLY FOUR TIMES A DAY TAKING IRON 1 TAB ORAL TAKING PROAIR HFA 108 (90 BASE) MCG/ACT AEROSOL SOLUTION 2 PUFFS NEEDED INHALATION EVERY 4 HRS NOT-TAKING SOMA 350 MG TABLET 1 TABLET NEEDED ORALLY FOUR TIMES A DAY- FROM ORTHO NOT-TAKING MULTIVITAMIN ADULT - TABLET 1 ORALLY DAILY/OCC NOT-TAKING RONNIE 3-0.02 MG TABLET 1 TABLET ORALLY ONCE A DAY FOR CONTINUOUS USE SKIPPPING PLACEBOS NOT-TAKING AMITIZA 8 MCG CAPSULE 1 CAPSULE WITH FOOD ORALLY TWICE A DAY MEDICATION LIST REVIEWED AND RECONCILED WITH THE PATIENT PAST MEDICAL HISTORY PCL INJURED MARCH 2010 FIRST CONCUSSION JULY 2012 SECOND CONCUSSION SEPTEMBER 2012 WITH CONCUSION SYNDROME SX ONE MONTH AFTER. TACHYCARDIA BORDERLINE HYPERTENSION MENSTRUAL MORRIS ALLERGIES AMOXICILLIN: NAUSEA/VOMITING: SIDE EFFECTS SURGICAL HISTORY RIGHT KNEE 01/03/12 LEFT KNEE 2010 PICA KNEE....HAD ARTHROSCOPY IN JUNE 2012 COLONOSCOPY 2012 RIGHT KNEE SURGERY X 2 2013 LUNG ASPIRATION 2013 RIGHT KNEE SURGERY 2016 FAMILY HISTORY FATHER: ALIVE 51 YRS, HYPERTENSION, BEING TESTED FOR M.S., DIAGNOSED WITH HYPERTENSION, HEART DISEASE MOTHER: ALIVE 47 YRS, DIABETES, PRIOR TO GASTRIC BYPASS, DIAGNOSED WITH HYPERTENSION SIBLINGS: BROTHER WILSONS DISEASE HTN 2 BROTHER(S) - HEALTHY. NON-CONTRIBUTORY MOM-HX ANEMIA, BROTHERS- HX HTN, WILSONS DISEASE. SOCIAL HISTORY GENERAL: TOBACCO USE ARE YOU A:NONSMOKER NEVER SMOKER ARE YOU A:NONSMOKER NEVER SMOKER ARE YOU A:NONSMOKER NEVER SMOKER ARE YOU A:NONSMOKER NEVER SMOKER BMI CARE GOAL FOLLOW-UP ABOVE NORMAL BMI FOLLOW-UPGIVING ENCOURAGEMENT TO EXERCISE ABOVE NORMAL BMI FOLLOW-UPGIVING ENCOURAGEMENT TO EXERCISE ABOVE NORMAL BMI FOLLOW-UPGIVING ENCOURAGEMENT TO EXERCISE ABOVE NORMAL BMI FOLLOW-UPGIVING ENCOURAGEMENT TO EXERCISE ALCOHOL SCREENING DID YOU HAVE A DRINK CONTAINING ALCOHOL IN THE PAST YEAR?YES HOW OFTEN DID YOU HAVE A DRINK CONTAINING ALCOHOL IN THE PAST YEAR?MONTHLY OR LESS (1 POINT) HOW MANY DRINKS DID YOU HAVE ON A TYPICAL DAY WHEN YOU WERE DRINKING IN THE PAST YEAR?1 OR 2 (0 POINTS) HOW OFTEN DID YOU HAVE SIX OR MORE DRINKS ON ONE OCCASION IN THE PAST YEAR?NEVER (0 POINTS) POINTS1 INTERPRETATIONNEGATIVE DID YOU HAVE A DRINK CONTAINING ALCOHOL IN THE PAST YEAR?YES HOW OFTEN DID YOU HAVE A DRINK CONTAINING ALCOHOL IN THE PAST YEAR?MONTHLY OR LESS (1 POINT) HOW MANY DRINKS DID YOU HAVE ON A TYPICAL DAY WHEN YOU WERE DRINKING IN THE PAST YEAR?1 OR 2 (0 POINTS) HOW OFTEN DID YOU HAVE SIX OR MORE DRINKS ON ONE OCCASION IN THE PAST YEAR?NEVER (0 POINTS) POINTS1 INTERPRETATIONNEGATIVE DID YOU HAVE A DRINK CONTAINING ALCOHOL IN THE PAST YEAR?YES HOW OFTEN DID YOU HAVE A DRINK CONTAINING ALCOHOL IN THE PAST YEAR?MONTHLY OR LESS (1 POINT) HOW MANY DRINKS DID YOU HAVE ON A TYPICAL DAY WHEN YOU WERE DRINKING IN THE PAST YEAR?1 OR 2 (0 POINTS) HOW OFTEN DID YOU HAVE SIX OR MORE DRINKS ON ONE OCCASION IN THE PAST YEAR?NEVER (0 POINTS) POINTS1 INTERPRETATIONNEGATIVE DID YOU HAVE A DRINK CONTAINING ALCOHOL IN THE PAST YEAR?YES HOW OFTEN DID YOU HAVE A DRINK CONTAINING ALCOHOL IN THE PAST YEAR?MONTHLY OR LESS (1 POINT) HOW MANY DRINKS DID YOU HAVE ON A TYPICAL DAY WHEN YOU WERE DRINKING IN THE PAST YEAR?1 OR 2 (0 POINTS) HOW OFTEN DID YOU HAVE SIX OR MORE DRINKS ON ONE OCCASION IN THE PAST YEAR?NEVER (0 POINTS) POINTS1 INTERPRETATIONNEGATIVE RECREATIONAL DRUG USE DENIES. CAFFEINE DENIES. SEXUAL HX HAD SEX IN THE LAST 12 MONTHS (VAGINAL, ORAL, OR ANAL)?NO HAVE YOU EVER HAD AN STD?NO LMP:10/31/2016 HAD SEX IN THE LAST 12 MONTHS (VAGINAL, ORAL, OR ANAL)?NO HAVE YOU EVER HAD AN STD?NO LMP:10/31/2016 HAD SEX IN THE LAST 12 MONTHS (VAGINAL, ORAL, OR ANAL)?NO HAVE YOU EVER HAD AN STD?NO LMP:10/31/2016 HAD SEX IN THE LAST 12 MONTHS (VAGINAL, ORAL, OR ANAL)?NO HAVE YOU EVER HAD AN STD?NO LMP:10/31/2016 HIV / HEP-C SCREENING HIV TEST OFFERED TO PATIENT:YES DATE OFFERED:04/20/2017 TEST ACCEPTED:NO REASON:PATIENT DECLINED HEP-C TEST OFFERED TO PATIENT:YES DATE OFFERED:04/20/2017 TEST ACCEPTED:NO REASON:PATIENT DECLINED HIV TEST OFFERED TO PATIENT:YES DATE OFFERED:04/20/2017 TEST ACCEPTED:NO REASON:PATIENT DECLINED HEP-C TEST OFFERED TO PATIENT:YES DATE OFFERED:04/20/2017 TEST ACCEPTED:NO REASON:PATIENT DECLINED HIV TEST OFFERED TO PATIENT:YES DATE OFFERED:04/20/2017 TEST ACCEPTED:NO REASON:PATIENT DECLINED HEP-C TEST OFFERED TO PATIENT:YES DATE OFFERED:04/20/2017 TEST ACCEPTED:NO REASON:PATIENT DECLINED HIV TEST OFFERED TO PATIENT:YES DATE OFFERED:04/20/2017 TEST ACCEPTED:NO REASON:PATIENT DECLINED HEP-C TEST OFFERED TO PATIENT:YES DATE OFFERED:04/20/2017 TEST ACCEPTED:NO REASON:PATIENT DECLINED 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 DIET: DIET MAKEDA. EXERCISE: CARDIO AND STRENGTH. MARITAL STATUS: SINGLE. OTHERS AT HOME: FATHER, MOTHER, SIBLING-BROTHER. PETS: 1 DOG--3 CATS. TENRIISM JUDAISM. LANGUAGE OCCITAN. EDUCATION LEVEL OF EDUCATION: CURRENTLY IN [place] [employer] LEVEL OF EDUCATION: CURRENTLY IN [place] [employer] LEVEL OF EDUCATION: CURRENTLY IN [place] [employer] LEVEL OF EDUCATION: CURRENTLY IN [employer] LEARNING BARRIERS / SPECIAL NEEDS CHANGE FROM LAST VISIT?NO 04/20/2017 BARRIERS TO LEARNING?NO HEARING IMPAIRED?NO VISION IMPAIRED?YES :CORRECTIVE LENSES COGNITIVELY IMPAIRED?NO READINESS TO LEARN?YES LEARNING PREFERENCES?NO LEARNING CAPABILITIES PRESENT?YES EMOTIONAL BARRIERS?NO SPECIAL DEVICES?NO MANUFACTURING TEST TECHNICIAN NEEDED?NO CHANGE FROM LAST VISIT?NO 04/20/2017 BARRIERS TO LEARNING?NO HEARING IMPAIRED?NO VISION IMPAIRED?YES :CORRECTIVE LENSES COGNITIVELY IMPAIRED?NO READINESS TO LEARN?YES LEARNING PREFERENCES?NO LEARNING CAPABILITIES PRESENT?YES EMOTIONAL BARRIERS?NO SPECIAL DEVICES?NO MANUFACTURING TEST TECHNICIAN NEEDED?NO CHANGE FROM LAST VISIT?NO 04/20/2017 BARRIERS TO LEARNING?NO HEARING IMPAIRED?NO VISION IMPAIRED?YES :CORRECTIVE LENSES COGNITIVELY IMPAIRED?NO READINESS TO LEARN?YES LEARNING PREFERENCES?NO LEARNING CAPABILITIES PRESENT?YES EMOTIONAL BARRIERS?NO SPECIAL DEVICES?NO MANUFACTURING TEST TECHNICIAN NEEDED?NO CHANGE FROM LAST VISIT?NO 04/20/2017 BARRIERS TO LEARNING?NO HEARING IMPAIRED?NO VISION IMPAIRED?YES :CORRECTIVE LENSES COGNITIVELY IMPAIRED?NO READINESS TO LEARN?YES LEARNING PREFERENCES?NO LEARNING CAPABILITIES PRESENT?YES EMOTIONAL BARRIERS?NO SPECIAL DEVICES?NO MANUFACTURING TEST TECHNICIAN NEEDED?NO NEW PATIENT PAIN DIARY PATIENT DESCRIBES PAIN :BURNING, HAVE IT ALL THE TIME, SHARP, STABBING, THROBBING, SHOOTING FROM 0-10, WHAT LEVEL IS YOUR PAIN TODAY?7 PRECIPITATING FACTORS SITTING AND STANDING FOR LONG PERIODS ALLEVIATING FACTORS NOT MUCH, MEDICATIONS IMPACT ON FUNCTION DECREASED ACTIVITY LEVEL IS THERE A CHANCE YOU COULD BE ? NO HAVE YOU BEEN SICK IN THE LAST WEEK (COLD, COUGH, FEVER, FLU, ETC) NO ANY CHANGE IN BOWEL OR BLADDER CONTROL? NO ARE YOU ALLERGIC TO SHELLFISH OR IV DYE? NO ARE YOU DIABETIC? NO DO YOU HAVE A PACEMAKER OR DEFIBRILLATOR? NO ANY NEW PROBLEMS WITH MEDICINES OR NEW ALLERGIES NO ANY NEW PATTERNS OF PAIN OR NUMBNESS? YES, NUMBNESS AND TINGLING SHOOTING DOWN INTO FEET IN THE LAST TWO WEEKS, RIGHT SIDE AFFECTED MORE THAN LEFT ANY CHANGE IN YOUR MEDICAL CONDITION? NO HAVE YOU FALLEN IN THE LAST 6 MONTHS? NO DO YOU USE ANY TYPE OF TOBACCO (SMOKE, SMOKELESS, CHEW, ETC.) NO ARE YOU ABUSED, NEGLECTED, OR IN AN UNSAFE ENVIRONMENT? NO DO YOU HAVE THOUGHTS OF HURTING YOURSELF OR SOMEONE ELSE? NO DO YOU NEED ANY PRESCRIPTIONS? POSSIBLE TO MANAGE SOMA? PAIN CLINIC PFS, CLERGY, PUBLIC HEALTH REFERRALS WAS THE PROVIDER NOTIFIED OF ANY PERTINENT INFO?YES HAS THE PATIENT BEEN EDUCATED REGARDING HIS/HER PLAN OF CARE?YES PLEASE DOCUMENT ANY ADDTIONAL DETAILS.PLEASE FREE TEXT IN THE NOTES SECTION. NEW PATIENT, ORIENTED TO PAIN CENTER. HAS THE PATIENT BEEN EDUCATED REGARDING PAIN, THE RISK FOR PAIN, THE IMPORTANCE OF EFFECTIVE PAIN MANAGEMENT, AND THE PAIN ASSESSMENT PROCESS?YES PLEASE DOCUMENT ANY ADDTIONAL DETAILS. NEW PATIENT PACKET GIVEN REVIEWED BY: HALIE. ADVANCE DIRECTIVES HEALTH CARE PROXY?NO WOULD YOU LIKE MORE INFORMATION?NO DO YOU HAVE A DNR?NO WOULD YOU LIKE MORE INFORMATION?NO LIVING WILL?NO WOULD YOU LIKE MORE INFORMATION?NO POWER OF CELL TECHNICIAN?NO WOULD YOU LIKE MORE INFORMATION?NO HEALTH CARE PROXY?NO WOULD YOU LIKE MORE INFORMATION?NO DO YOU HAVE A DNR?NO WOULD YOU LIKE MORE INFORMATION?NO LIVING WILL?NO WOULD YOU LIKE MORE INFORMATION?NO POWER OF CELL TECHNICIAN?NO WOULD YOU LIKE MORE INFORMATION?NO HEALTH CARE PROXY?NO WOULD YOU LIKE MORE INFORMATION?NO DO YOU HAVE A DNR?NO WOULD YOU LIKE MORE INFORMATION?NO LIVING WILL?NO WOULD YOU LIKE MORE INFORMATION?NO POWER OF CELL TECHNICIAN?NO WOULD YOU LIKE MORE INFORMATION?NO HEALTH CARE PROXY?NO WOULD YOU LIKE MORE INFORMATION?NO DO YOU HAVE A DNR?NO WOULD YOU LIKE MORE INFORMATION?NO LIVING WILL?NO WOULD YOU LIKE MORE INFORMATION?NO POWER OF CELL TECHNICIAN?NO WOULD YOU LIKE MORE INFORMATION?NO TRAVEL OUTSIDE US: YES. DOMESTIC VIOLENCE DENIES. HOSPITALIZATION/MAJOR DIAGNOSTIC PROCEDURE SURGERY REVIEW OF SYSTEMS REVIEWED BY: PROVIDER: ROBERT TOWNSEND . CONSTITUTIONAL: ANY CHANGE IN YOUR MEDICAL CONDITION? NO . CHILLS NO . FEVER NO . INFECTION: DO YOU HAVE NEW INFECTIONS? NO . DO YOU HAVE HISTORY OF MRSA? NO . MUSCULOSKELETAL: ANY NEW PATTERNS OF PAIN OR NUMBNESS? YES, . SYTEMIC LUPUS NO . GASTROENTEROLOGY: GENERAL HX OF IBS-C UNDER CONTROL . ANY NEW CHANGE IN BOWEL CONTROL? NO . BARRETTS ESOPHAGUS NO . CIRRHOSIS NO . HEPATITIS NO . LIVER FAILURE NO . ACID REFLUX NO . UNEXPLAINED WEIGHT LOSS NO . GENITOURINARY: ANY NEW CHANGE IN BLADDER CONTROL? NO . IS THERE A CHANCE YOU COULD BE ? NO . HEMATOLOGY/LYMPH: DO YOU TAKE ANY BLOOD THINNERS? (FOR EXAMPLE- COUMADIN, PLAVIX, AGGRENOX, PLATEL, PRADAXA, OR XARELTO) NO . WHEN WAS YOUR LAST DOSE? DATE: TIME: . LOW PLATELET COUNT NO . SICKLE CELL DISEASE NO . VON WILLIEBRANDS NO . FACTOR V LEIDEN NO . THALLASEMIA NO . ANEMIA NO . EASY BRUISING NO . NEUROLOGY: HAVE YOU FALLEN IN THE PAST 6 MONTHS? NO . ANY NEW EXTREMITY NUMBNESS OR WEAKNESS? NO . HEAD INJURY NO . DEMENTIA NO . CEREBRAL PALSY NO . MULTIPLE SCLEROSIS NO . DIZZINESS NO . HEADACHE HX OF TENSION HEADACHES SEC TO LOSS OF CERVICAL CURVE. HX OF 4 CONCUSSION EVENTS . STROKES NO . VERTIGO NO . CARDIOLOGY: DO YOU HAVE A PACEMAKER OR DEFIBRILLATOR? NO . ANGINA NO . HEART ATTACK NO . HEART SURGERY NO . CONGESTIVE HEART FAILURE/FLUID OVERLOAD NO . PATIENT COMPLAINING OF HX OF TACHY CARDIA - STARTED ON ATENOLOL - FOLLOWS WITH DR CANTRELL . CHEST PAIN NO . HIGH BLOOD PRESSURE NO . IRREGULAR HEART BEAT NO . RESPIRATORY: HAVE YOU BEEN SICK IN THE PAST WEEK? NO . FEVER NO . FLU LIKE SYMPTOMS? NO . CPAP NO . BYPAP NO . ASTHMA YES - EXERCISE INDUCED - INHALER PRN . EMPHYSEMA NO . CHRONIC LUNG DISEASES NO . SHORTNESS OF BREATH ON EXERTION NO . COUGH NO . SNORING NO . INTEGUMENTARY: DO YOU HAVE ANY RASHES OR OPEN SORES? NO . ALLERGIC/IMMUNO: ARE YOU ALLERGIC TO SHELLFISH OR IV DYE? NO . ANY NEW ALLERGIES? NO . PSYCHIATRIC: DO YOU HAVE THOUGHTS OF HURTING YOURSELF OR SOMEONE ELSE? NO . ARE YOU ABUSED, NEGLECTED, OR IN AN UNSAFE ENVIRONMENT? NO . ENDOCRINOLOGY: ARE YOU DIABETIC? NO . THYROID DISORDER NO . OTHER: DO YOU NEED ANY PRESCRIPTIONS? NO . IF YES, PLEASE LIST: ____ . ANY NEW PROBLEMS WITH YOUR MEDICATIONS? NO . WHEN DID YOU LAST EAT? ____ . WHEN DID YOU LAST DRINK? ____ . WHAT DID YOU LAST DRINK? ____ . NAME OF PERSON DRIVING YOU HOME? ____ . DO YOU HAVE ANY OTHER QUESTIONS OR CONCERNS NO . VITAL SIGNS WT 190 LBS, HT 68 IN, BMI 28.89 INDEX, BP 133/71 MM HG, HR 66 /MIN, RR 18 /MIN, TEMP 98.7 F, OXYGEN SAT % 99%, SAFE IN ENV? (Y/N) Y, NA INITIALS AW 1328, REVIEWED BY: HALIE. EXAMINATION GENERAL EXAMINATION: PSYCHALERT , ORIENTED X 3 , APPROPRIATE MOOD AND AFFECT . HEENT:NORMOCEPHALIC, NO LYMPHADENOPATHY, NO THYROMEGLY. LUNGS:CLEAR TO AUSCULTATION BILATERALLY, NO WHEEZES, RALES OR RHONCHI. HEART:NORMAL S1S2, NO MURMURS, CLICK OR RUBS. MUSCULOSKELETAL:TRIGGER POINT A AND TIGHT FIBROUS BANDS IDENTIFIED OVER BILALATERAL TRAPEZIUS MUSCLES AND ACROSS THE LUMBOSACRAL AXIS. EXQUISITE TNEDERNESS TO PALPATION OVER LEFT SACRAL ILIAC JOINT.AND ALONG THE LUMBAR SPINOUS PROCESSES.. POSITIVE PATRICKS TESTING ON RIGHT. PAIN WITH LEFT PELVIC OMPRESSION. CAN RISE TO HEEL/TOE; UNABLE TO FLEX OR EXTEND SPINE. POSTURE IS STIFF, GAIT IS NONANTALGIC.. NEUROLOGIC EXAM:DTR'S TRACE TO ABSENT BILATERAL LOWER EXTREMITIES.PLANTAR RESPONSE IS FLEXOR. NO CLONUS DECREASED SENS RIGHT LATERAL THIGH . DIAGNOSTIC TESTS REVIEWEDMRI OF LUMBAR SPINE COMPLETED ON 11/24/16 DEMONSTRATES DIFFUSE DISC BULGE AND SMALL DISC EXTRUSION AT THE L5-S1 LEVEL. THE DISC EXTRUSION ABUTS THE THECAL SAC AND THE RIGHT S1 NERVE.. ASSESSMENTS LUMBAR DISC DISPLACEMENT WITHOUT MYELOPATHY - M51.26 (PRIMARY) LUMBAR RADICULOPATHY - M54.16 TREATMENT LUMBAR DISC DISPLACEMENT WITHOUT MYELOPATHY CAUDAL/LUMBAR EPIDURALROBERT ODELL 05/16/2017 2:43:02 PM > CAUDAL SPECIFICALLY REQUESTED NOTES: MASSAGE/CHIRO THERAPY NEEDED TO UPPER BACK AND SHOULDERS,WHAT IS LUMBAR EPIDURAL INJECTION? MATERIAL WAS PRINTED. PROCEDURE CODES FA211 ESTABILISHED PATIENT [facility] CHARGE DISPOSITION & COMMUNICATION FOLLOW UP FOLLOWUP AFTER (REASON: CHECK AUTH FOR CAUDAL EPIDURAL - ) ELECTRONICALLY SIGNED BY ANEESH FREEDMAN ON 06/01/2017 AT 08:59 AM EDT DISCLAIMER : THIS IS A VISIT SUMMARY EXTRACTED FROM THE [employer] CHART. IT IS NOT A COPY OF THE [employer] PROGRESS NOTE. CARI
== END ==
LOC: M PAIN 13:30
PROVIDERS: ATTEND Nurse Practitioner Family
DX: M51.26 Other intervertebral disc displacement, lumbar region (principal); M54.16 Radiculopathy, lumbar region; J45.20 Mild intermittent asthma, uncomplicated; G43.829 Menstrual migraine, not intractable, without status migrainosus; G44.229 Chronic tension-type headache, not intractable; Z79.891 Long term (current) use of opiate analgesic; Z79.899 Other long term (current) drug therapy; Z88.0 Allergy status to penicillin

== ENCOUNTER → 2017-05-29 | Outpatient (CLI) | payer BC, OTHER ==
[~2017-05-29] MED LIST changes: +ISOVUE-M 300 61% 15ML VIAL (Q9967) As Ordered ONE; +LIDOCAINE 1% SDV INJ 30 ML VIAL As Ordered ONE; +diazePAM 5 MG TAB As Ordered ONE; +methylPREDNISolone SUSP 40 MG/ML (DEPO-medrol) VIAL (J1030) As Ordered ONE; +oxyCODONE 5MG TAB As Ordered ONE
--- NOTE | 2017-05-29 23:57 | ECWPNPC ---
PATIENT NAME: DAVI FOUNTAIN : 1995 GENDER: FEMALE VISIT DATE: 05/29/2017 DISCHARGE DATE: 05/29/17 1627 VISIT LOCKED DATE TIME: PHYSICIAN: ISATU BOWIE RESOURCE: ISATU BOWIE REASON FOR APPOINTMENT 1. CAUDAL EPIDURAL HISTORY OF PRESENT ILLNESS HISTORY OF PRESENT ILLNESS: PAIN THE PATIENT DESCRIBES THE PAIN... FALL RISK SCREENING: SCREENING :NO FALLS IN THE PAST YEAR CURRENT MEDICATIONS TAKING TRAMADOL HCL 50 MG TABLET 1 TABLET NEEDED ORALLY EVERY 6 HRS- FROM ORTHO, NOTES: 05-28-17 MIDNIGHT TAKING HAIR SKIN AND NAILS FORMULA - TABLET 1 ORALLY DAILY, NOTES: 05-29-17 MIDNIGHT TAKING ATENOLOL 50 MG TABLET 1 TABLET ORALLY DAILY, NOTES: 05-29-17 MIDNIGHT TAKING GABAPENTIN 400 MG CAPSULE 1 CAPSULE ORALLY THREE TIMES A DAY, NOTES: 05-29-17 MIDNIGHT TAKING HYDROCODONE-ACETAMINOPHEN 5-325 MG TABLET 1 TABLET NEEDED ORALLY EVERY 6 HRS, NOTES: 05-29-17 0400 TAKING AZELASTINE HCL 0.1 % SOLUTION 1 PUFF IN EACH NOSTRIL NASALLY TWICE A DAY, NOTES: NONE TAKING ELVIN 3-0.02 MG TABLET 1 TABLET ORALLY ONCE A DAY, NOTES: 05-29-17 MIDNIGHT TAKING IBUPROFEN 800 MG TABLET 1 TABLET WITH FOOD OR MILK ORALLY THREE TIMES A DAY, NOTES: 05-29-17 MIDNIGHT TAKING CARISOPRODOL 350 MG TABLET 1 TABLET NEEDED ORALLY FOUR TIMES A DAY, NOTES: 05-29-17 MIDNIGHT TAKING IRON 1 TAB ORAL , NOTES: NONE TAKING PROAIR HFA 108 (90 BASE) MCG/ACT AEROSOL SOLUTION 2 PUFFS NEEDED INHALATION EVERY 4 HRS, NOTES: NONE NOT-TAKING SOMA 350 MG TABLET 1 TABLET NEEDED ORALLY FOUR TIMES A DAY- FROM ORTHO NOT-TAKING MULTIVITAMIN ADULT - TABLET 1 ORALLY DAILY/OCC NOT-TAKING RONNIE 3-0.02 MG TABLET 1 TABLET ORALLY ONCE A DAY FOR CONTINUOUS USE SKIPPPING PLACEBOS NOT-TAKING AMITIZA 8 MCG CAPSULE 1 CAPSULE WITH FOOD ORALLY TWICE A DAY MEDICATION LIST REVIEWED AND RECONCILED WITH THE PATIENT PAST MEDICAL HISTORY PCL INJURED MARCH 2010 FIRST CONCUSSION JULY 2012 SECOND CONCUSSION SEPTEMBER 2012 WITH CONCUSION SYNDROME SX ONE MONTH AFTER. TACHYCARDIA BORDERLINE HYPERTENSION MENSTRUAL MORRIS ALLERGIES AMOXICILLIN: NAUSEA/VOMITING: SIDE EFFECTS REVIEW OF SYSTEMS REVIEWED BY: PROVIDER: . CONSTITUTIONAL: ANY CHANGE IN YOUR MEDICAL CONDITION? NO . CHILLS NO . FEVER NO . INFECTION: DO YOU HAVE NEW INFECTIONS? NO . DO YOU HAVE HISTORY OF MRSA? NO . MUSCULOSKELETAL: ANY NEW PATTERNS OF PAIN OR NUMBNESS? NO, JUST GETTING WORSE . GASTROENTEROLOGY: ANY NEW CHANGE IN BOWEL CONTROL? NO . GENITOURINARY: ANY NEW CHANGE IN BLADDER CONTROL? NO . IS THERE A CHANCE YOU COULD BE ? NO . HEMATOLOGY/LYMPH: DO YOU TAKE ANY BLOOD THINNERS? (FOR EXAMPLE- COUMADIN, PLAVIX, AGGRENOX, PLATEL, PRADAXA, OR XARELTO) NO . WHEN WAS YOUR LAST DOSE? DATE: TIME: . NEUROLOGY: HAVE YOU FALLEN IN THE PAST 6 MONTHS? NO . ANY NEW EXTREMITY NUMBNESS OR WEAKNESS? NO . CARDIOLOGY: DO YOU HAVE A PACEMAKER OR DEFIBRILLATOR? NO . RESPIRATORY: HAVE YOU BEEN SICK IN THE PAST WEEK? NO . FEVER NO . FLU LIKE SYMPTOMS? NO . COUGH NO . INTEGUMENTARY: DO YOU HAVE ANY RASHES OR OPEN SORES? NO . ALLERGIC/IMMUNO: ARE YOU ALLERGIC TO SHELLFISH OR IV DYE? NO . ANY NEW ALLERGIES? NO . PSYCHIATRIC: DO YOU HAVE THOUGHTS OF HURTING YOURSELF OR SOMEONE ELSE? NO . ARE YOU ABUSED, NEGLECTED, OR IN AN UNSAFE ENVIRONMENT? NO . ENDOCRINOLOGY: ARE YOU DIABETIC? NO . OTHER: DO YOU NEED ANY PRESCRIPTIONS? YES, LISA SENT TO [facility] . IF YES, PLEASE LIST: GABAPENTIN 400MG, SOMA 350MG . ANY NEW PROBLEMS WITH YOUR MEDICATIONS? NO . WHEN DID YOU LAST EAT? 05-29-17699 . WHEN DID YOU LAST DRINK? 05-29-17699 . WHAT DID YOU LAST DRINK? WATER . NAME OF PERSON DRIVING YOU HOME? SHANTE WADE . DO YOU HAVE ANY OTHER QUESTIONS OR CONCERNS NO . VITAL SIGNS WT 180 LBS, HT 68 IN, BMI 27.37 INDEX, BP 125/74 MM HG, HR 64 /MIN, RR 18 /MIN, TEMP 97.6 F, OXYGEN SAT % 100%, NA INITIALS AW 1415, REVIEWED BY: CM. ASSESSMENTS INTERVERTEBRAL DISC DISORDER WITH RADICULOPATHY OF LUMBOSACRAL REGION - M51.17 (PRIMARY) PROCEDURES PRE PROCEDURE DIAGNOSIS LUMBOSACRAL DISC DISORDER WITH RADICULOPATHY POST PROCEDURE DIAGNOSIS LUMBOSACRAL DISC DISORDER WITH RADICULOPATHY PROCEDURE LUMBAR EPIDURAL STEROID INJECTION UNDER FLUOROSCOPIC GUIDANCE SURGEON DR. ISATU BOWIE JOURNAL BOX INSPECTOR NONE ANESTHESIA LOCAL PRE PROCEDURE NOTE THE PATIENT HAS A HISTORY OF CHRONIC LOW BACK PAIN. I EVALUATE THE PATIENT AND REVIEWED THE CHART. I WENT OVER THE RISKS, ALTERNATIVES, AND BENEFITS ASSOCIATED WITH THIS PROCEDURE. THE PATIENT WOULD LIKE TO PROCEED AND GIVE CONSENT TO PERFORMED THE PROCEDURE. THE PATIENT DENIES UNEXPLAINABLE WEIGHT LOSS, FEVER, CHILLS, OR NEW CHANGES IN URINARY OR BOWEL CONTROL. DESCRIPTION OF PROCEDURE THE PATIENT WAS BROUGHT TO THE PROCEDURE ROOM AND PLACED IN THE PRONE POSITION. THE LUMBOSACRAL AREA WAS CLEANED WITH BETADINE SOLUTION AND DRAPED ASEPTICALLY. THE PROCEDURE WAS DONE UNDER STERILE CONDITIONS. I CHECKED LATERALITY AND THE LEVEL WHERE THE PROCEDURE WAS GOING TO BE PERFORMED WITH THE PATIENT AND THE SUPPORTING STAFF AT THE MOMENT OF THE TIME OUT IN THE PROCEDURE ROOM. UNDER FLUOROSCOPIC GUIDANCE, THE TARGET POINT WAS SELECTED AT THE INTERLAMINAR LEVEL OF L5-S1. LIDOCAINE WAS USED TO NUMB THE SKIN AND THE SUBCUTANEOUS TISSUE BELOW IT. EPIDURAL TUOHY NEEDLE, 17-GAUGE, WAS ADVANCED UNDER FLUOROSCOPIC GUIDANCE AND FOLLOWING PATIENT FEEDBACK UNTIL THE EPIDURAL SPACE WAS REACHED, 7 CM DEEP INTO THE SKIN BY THE LOSS OF RESISTANCE TECHNIQUE. ISOVUE M DYE 30%, 0.25 ML, WAS INJECTED SHOWING ADEQUATE SPREAD OF THE DYE. THEN, A SOLUTION OF 3 ML OF NORMAL SALINE WITH DEPO-MEDROL 60 MG WAS INJECTED SLOWLY FOLLOWING PATIENT FEEDBACK. THERE WAS NO EVIDENCE OF BLOOD, PARESTHESIA OR CEREBROSPINAL FLUID DURING THE PROCEDURE. THE PATIENT WAS SENT TO THE RECOVERY ROOM. THE PATIENT WAS MOVING THE EXTREMITIES AND DOING WELL. THERE WAS NO COMPLICATION DURING THE PROCEDURE. FLUOROSCOPY TIME WAS 14 SECONDS. POST PROCEDURE NOTE THE PATIENT WILL BE SEEN IN A FOLLOW UP IN THE NEXT FEW WEEKS. INSTRUCTIONS WERE GIVEN, QUESTIONS WERE ANSWERED, AND THE PATIENT EXPRESSED UNDERSTANDING AND AGREES WITH THE PLAN. I, QUINCY CASTRO, DOCUMENTED THE ABOVE INFORMATION ACTING A SCRIBE FOR DR. BOWIE. I, DR. BOWIE, HAVE REVIEWED THE ABOVE DOCUMENT, SCRIBED BY QUINCY CASTRO, AND I VERIFY THAT IT IS ACCURATE DIAGNOSTIC IMAGING [facility] FLUORO GUIDE SPINE INJECTION (PAIN)[id number] PROCEDURE CODES 04328 LUMBAR/SACRAL W/ IMAGING 6045F RADXPS IN END [id number] PXD DISPOSITION & COMMUNICATION FOLLOW UP 3 WEEKS ELECTRONICALLY SIGNED BY ISATU BOWIE MD ON 05/29/2017 AT 09:49 PM EDT DISCLAIMER : THIS IS A VISIT SUMMARY EXTRACTED FROM THE [employer] CHART. IT IS NOT A COPY OF THE [employer] PROGRESS NOTE. CARI
--- NOTE | 2017-05-30 18:06 | REP ---
LEFT LUMBAR FACET BLOCK: All imaging was reviewed with Dr. Khanna prior to dictation. The portable C-ARM is provided in the OR to Dr. Angulo for fluoroscopic guidance. 4 intraoperative spot films were obtained using last image hold technology for needle placement verification for left lumbar facet injection. The films are on the PACs system and are available for review. Fluoroscopy time: 14 seconds were utilized for this procedure. Reviewed by RENETTA Dasilva 05/31/2017 08:24 AEdited and Signed by Hesham Khanna MD 05/31/2017 07:59 P
== END ==
LOC: M PAIN 14:15
PROVIDERS: ATTEND Anesthesiology
DX: G89.29 Other chronic pain (principal); M51.17 Intervertebral disc disorders with radiculopathy, lumbosacral region; M54.5 Low back pain; J45.20 Mild intermittent asthma, uncomplicated; Z79.891 Long term (current) use of opiate analgesic; Z79.899 Other long term (current) drug therapy; Z88.0 Allergy status to penicillin
CPT/HCPCS: 62323; J1030; Q9967

== ENCOUNTER → 2017-10-29 | Outpatient (CLI) | payer BC, OTHER | LOC: M RAD 16:02 | DX: J32.9 Chronic sinusitis, unspecified (principal) | CPT/HCPCS: 70486 ==

== ENCOUNTER 2017-11-29 08:19 | Outpatient (RCR) | payer BC, OTHER | END 2017-12-01 | LOC: M PT 08:19 | DX: Z51.89 Encounter for other specified aftercare (principal); M54.5 Low back pain; Z98.1 Arthrodesis status | CPT/HCPCS: 97162 ==

== ENCOUNTER 2017-12-04 06:58 | Outpatient (RCR) | payer BC, OTHER | END 2017-12-31 | LOC: M PT 06:58 | DX: Z51.89 Encounter for other specified aftercare (principal); Z98.1 Arthrodesis status | CPT/HCPCS: 97010 ==

== ENCOUNTER 2018-01-03 10:17 | Day surgery (SDC) | payer BC, OTHER ==
[2018-01-03] MEDS ORDERED: LR 1,000 ML IV ×3 (10:30→16:15)
[2018-01-03 11:46] LABS: CONTROL LINE HCG INT CTR LINE PRESENT; HCG, SERUM QUALITATIVE NEGATIVE (NEGATIVE)
[2018-01-03] MEDS ORDERED: LIDOCAINE 2% INJ 100 MG/5 ML SDV (FOR ANES.) As Ordered (13:46)
[2018-01-03] MEDS ORDERED: PROPOFOL 200 MG/20 ML VIAL As Ordered (13:46)
[2018-01-03] MEDS ORDERED: KETOROLAC 60 MG/2 ML VIAL (J1885) As Ordered (13:46)
[2018-01-03] MEDS ORDERED: ROCURONIUM BROMIDE 50 MG/5 ML VIAL As Ordered (13:46)
[2018-01-03] MEDS ORDERED: dexameTHASONE 4 MG/ML 1ML VIAL (J1100) As Ordered (13:46)
[2018-01-03] MEDS ORDERED: ONDANSETRON 4MG/2ML VIAL (J2405) As Ordered (13:46)
[2018-01-03] MEDS ORDERED: fentaNYL 100 MCG/2 ML INJECTION (J3010) As Ordered ×2 (13:47→15:42)
[2018-01-03] MEDS ORDERED: MIDAZOLAM INJ 2 MG/2 ML VIAL (J2250) As Ordered (13:47)
[2018-01-03] MEDS: dexameTHASONE 4 MG/ML 1ML VIAL (J1100) IV (14:15)
[2018-01-03] MEDS: SODIUM CHLORIDE 0.9% NASAL GEL 15GM (AYR) As Ordered (15:00)
[2018-01-03] MEDS: EPINEPHrine 1MG/ML INJ 30ML MD-VIAL As Ordered (15:00)
[2018-01-03] MEDS: METHYLENE BLUE 0.5% (5MG/ML) 10 ML AMP (PROVAYBLUE)(Q9968 PER 1MG) As Ordered (15:00)
[2018-01-03] MEDS: LIDOCAINE W/EPINEPHRINE 1% 20ML VIAL As Ordered (15:20)
[2018-01-03] MEDS: fentaNYL 100 MCG/2 ML INJECTION (J3010) IV ×4 (15:43→15:58)
[2018-01-03] MEDS ORDERED: METOCLOPRAMIDE INJ 10MG/2ML VIAL (J2765) IV (15:45)
[2018-01-03] MEDS ORDERED: ONDANSETRON 4MG/2ML VIAL (J2405) IV (15:45)
[2018-01-03] MEDS: PERCOCET 5MG/325MG TAB PO ×2 (16:02→18:31)
[2018-01-03] MEDS ORDERED: HYDROmorphone HCL 1 MG/ML SYRINGE (J1170) As Ordered (16:06)
[2018-01-03] MEDS: HYDROmorphone HCL 1 MG/ML SYRINGE (J1170) IV ×5 (16:09→16:40)
[2018-01-03] MEDS ORDERED: oxyCODONE 5MG TAB As Ordered (19:41)
[2018-01-03] MEDS: oxyCODONE 5MG TAB PO ×2 (19:48→20:04)
== END 2018-01-03 20:55 | disposition home or self-care (01) ==
LOC: M SDC 10:17
DX: J34.2 Deviated nasal septum (principal); J35.2 Hypertrophy of adenoids; J45.909 Unspecified asthma, uncomplicated; Z79.899 Other long term (current) drug therapy; Z88.0 Allergy status to penicillin; K58.8 Other irritable bowel syndrome; R00.0 Tachycardia, unspecified; Z79.51 Long term (current) use of inhaled steroids
CPT/HCPCS: 30520

== ENCOUNTER → 2018-03-07 | Outpatient (REF) | payer OTHER | LOC: M SFHCWAGY 09:33 | DX: Z12.4 Encounter for screening for malignant neoplasm of cervix (principal) | CPT/HCPCS: G0123 ==

== ENCOUNTER 2018-09-09 23:21 | Emergency (ER) | payer BC, OTHER ==
[~2018-09-09] VITALS: Ht 175.3 cm; Wt 84.1 kg
[~2018-09-09 23:21] MED LIST changes: +ACET500T15 PO; +BENA25CA4 PO; +CARI1TAB7; -CARI350T; -ISOVUE-M 300 61% 15ML VIAL (Q9967) As Ordered ONE; -LIDOCAINE 1% SDV INJ 30 ML VIAL As Ordered ONE; +NAPR-50 PO; -NAPR500T PO; +VENTAER INH; +YAZ1TAB PO; -diazePAM 5 MG TAB As Ordered ONE; -methylPREDNISolone SUSP 40 MG/ML (DEPO-medrol) VIAL (J1030) As Ordered ONE; -oxyCODONE 5MG TAB As Ordered ONE
[2018-09-09] MEDS ORDERED: NORT25CA2 PO (23:35)
[2018-09-09] MEDS ORDERED: LISI10TA4 PO (23:35)
[2018-09-09] MEDS ORDERED: CHLO125TA PO (23:35)
[2018-09-09] MEDS ORDERED: MAXA10TA14 PO (23:36)
[2018-09-10] MEDS ORDERED: diazePAM 10 MG TAB PO ONE (01:15)
[2018-09-10] MEDS ORDERED: NORCO, ANEXSIA 5/325MG TABLET (HYDROcodone/ACETAMINOPHEN) PO ONE (01:15)
[2018-09-10] MEDS ORDERED: PERCOCET 5MG/325MG TAB PO ONE (02:00)
[2018-09-10] MEDS ORDERED: HYDROMORPHONE HCL 0.5 MG/ 0.5 ML SYRINGE (J1170 PER 1) IM STA (03:00)
[2018-09-10 05:21] VITALS: BP 128/77
== END 2018-09-10 05:46 | disposition home or self-care (01) ==
LOC: M ED 23:21
DX: G89.29 Other chronic pain (principal); M51.36 Other intervertebral disc degeneration, lumbar region; M54.9 Dorsalgia, unspecified; Z98.1 Arthrodesis status
CPT/HCPCS: 96372; 99283; J1170

== ENCOUNTER → 2019-11-16 | Outpatient (CLI) | payer BC, MEDICAID ==
[~2019-11-16] MED LIST changes: +CHLO125TA PO; +LISI10TA4 PO; +MAXA10TA14 PO; -NAPR-50 PO; +NAPR-837 PO; +NORT25CA2 PO
[2019-11-16 14:34] LABS: BASO # 0.1 10^3/uL (0.0-0.2); BASO % 0.9 % (0.0-1.0); EOS # 0.3 10^3/uL (0.0-0.5); EOS % 3.6 % (0.0-3.0); HEMATOCRIT 40.1 % (36.0-47.0); HEMOGLOBIN 13.6 g/dl (12.0-15.5); LYMPH # 1.8 10^3/uL (1.5-5.0); LYMPH % 24.3 % (24.0-44.0); MEAN CORPUSCULAR HEMOGLOBIN 29.3 pg (27.0-33.0); MEAN CORPUSCULAR HGB CONC 33.9 g/dl (32.0-36.5); MEAN CORPUSCULAR VOLUME 86.4 fl (80.0-96.0); MONO # 0.6 10^3/uL (0.0-0.8); MONO % 8.2 % (0.0-5.0); NEUTROPHILS # 4.6 10^3/uL (1.5-8.5); NEUTROPHILS % 62.7 % (36.0-66.0); PLATELET COUNT, AUTOMATED 291 10^3/uL (150-450); RED BLOOD COUNT 4.64 10^6/uL (4.00-5.40); WHITE BLOOD COUNT 7.4 10^3/uL (4.0-10.0)
[2019-11-16 14:56] LABS: ALBUMIN 3.3 GM/DL (3.2-5.2); ALT/SGPT 16 U/L (12-78); BILIRUBIN,TOTAL 0.2 MG/DL (0.2-1.0); BLOOD UREA NITROGEN 14 MG/DL (7-18); CALCIUM LEVEL 8.6 MG/DL (8.5-10.1); CARBON DIOXIDE LEVEL 29 MEQ/L (21-32); CHLORIDE LEVEL 103 MEQ/L (98-107); CREATININE FOR GFR 0.67 MG/DL (0.55-1.30); GLOMERULAR FILTRATION RATE > 60.0 (>60); GLUCOSE, FASTING 85 MG/DL (70-100); LIPASE 83 U/L (73-393); POTASSIUM SERUM 3.5 MEQ/L (3.5-5.1); SODIUM LEVEL 138 MEQ/L (136-145); TOTAL PROTEIN 6.8 GM/DL (6.4-8.2)
== END ==
LOC: M WUC 09:56
PROVIDERS: ATTEND Physician Assistant
DX: K59.00 Constipation, unspecified (principal)

== ENCOUNTER → 2020-02-19 | Outpatient (REF) | payer BC, MEDICAID | LOC: M SFHCCLAY 11:33 | PROVIDERS: ATTEND Family Medicine | DX: J45.990 Exercise induced bronchospasm (principal) ==

== ENCOUNTER → 2020-03-11 | Outpatient (REF) | payer BC, MEDICAID ==
[~2020-03-11] MED LIST changes: +GABA-843; +IBUP-1114 PO; +LOSA25TA14; +TOPI100T9
[2020-03-11 19:50] LABS: CHLAMYDIA DNA AMPLIFICATION NEGATIVE (NEGATIVE); GC DNA AMPLIFICATION NEGATIVE (NEGATIVE)
== END ==
LOC: M SFHCWAGY 16:56
PROVIDERS: ATTEND Nurse Practitioner Family
DX: Z12.4 Encounter for screening for malignant neoplasm of cervix (principal)
CPT/HCPCS: 87661; G0123

== ENCOUNTER → 2020-04-07 | Outpatient (CLI) | payer BC, MEDICAID ==
--- NOTE | 2020-05-26 14:12 | ECGEPIP ---
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
[2020-06-04 22:14] LABS: HCG, SERUM QUALITATIVE NEGATIVE (NEGATIVE)
== END ==
LOC: M LAB 10:02
PROVIDERS: ATTEND Orthopaedic Surgery
DX: I10 Essential (primary) hypertension (principal)

== ENCOUNTER → 2020-04-09 | Outpatient (CLI) | payer BC, MEDICAID | LOC: M LABSMTC 10:45 | PROVIDERS: ATTEND Orthopaedic Surgery | DX: Z11.59 Encounter for screening for other viral diseases (principal) ==

== ENCOUNTER 2020-06-26 15:39 | Emergency (ER) | payer BC, MEDICAID ==
[~2020-06-26] VITALS: Ht 175.3 cm; Wt 90.3 kg
[~2020-06-26 15:39] MED LIST changes: -GABA-843; -IBUP-1114 PO; -LOSA25TA14; -TOPI100T9
[2020-06-26] MEDS ORDERED: LOSA25TA14 (15:47)
[2020-06-26] MEDS ORDERED: TOPI100T9 (15:47)
[2020-06-26] MEDS ORDERED: IBUP-1114 PO (15:47)
[2020-06-26] MEDS ORDERED: GABA-843 (15:47)
[2020-06-26] MEDS ORDERED: LIDOCAINE 1% MDV 20ML VIAL SC ONE (16:30)
[2020-06-26 17:00] VITALS: BP 114/59
== END 2020-06-26 17:13 | disposition home or self-care (01) ==
LOC: M ED 15:39
DX: S61.213A Laceration without foreign body of left middle finger without damage to nail, initial encounter (principal); S61.211A Laceration without foreign body of left index finger without damage to nail, initial encounter; S61.215A Laceration without foreign body of left ring finger without damage to nail, initial encounter; W25.XXXA Contact with sharp glass, initial encounter; Y92.098 Other place in other non-institutional residence as the place of occurrence of the external cause; I10 Essential (primary) hypertension; R00.0 Tachycardia, unspecified; J45.909 Unspecified asthma, uncomplicated; R51.9 Headache, unspecified; Z88.0 Allergy status to penicillin; Z91.048 Other nonmedicinal substance allergy status; Z88.8 Allergy status to other drugs, medicaments and biological substances; Z79.899 Other long term (current) drug therapy

== ENCOUNTER → 2020-10-28 | Outpatient (REF) | payer OTHER ==
[~2020-10-28] MED LIST changes: +GABA-282; +IBUP-1114 PO; +LISI10TA22 PO; -LISI10TA4 PO; +LOSA25TA14; +TOPI100T9
[2020-10-28 11:54] LABS: BASO # 0.1 10^3/uL (0.0-0.2); BASO % 1.5 % (0.0-1.0); EOS # 0.3 10^3/uL (0.0-0.5); EOS % 5.5 % (0.0-3.0); HEMATOCRIT 41.6 % (36.0-47.0); HEMOGLOBIN 13.3 g/dl (12.0-15.5); LYMPH # 1.7 10^3/uL (1.5-5.0); LYMPH % 36.5 % (24.0-44.0); MEAN CORPUSCULAR HEMOGLOBIN 28.3 pg (27.0-33.0); MEAN CORPUSCULAR VOLUME 88.5 fl (80.0-96.0); MONO # 0.5 10^3/uL (0.0-0.8); MONO % 10.5 % (2.0-8.0); NEUTROPHILS # 2.1 10^3/uL (1.5-8.5); NEUTROPHILS % 45.8 % (36.0-66.0); PLATELET COUNT, AUTOMATED 219 10^3/uL (150-450); WHITE BLOOD COUNT 4.6 10^3/uL (4.0-10.0)
[2020-10-28 12:26] LABS: THYROID STIMULATING HORMONE 1.37 uIU/ML (0.358-3.740)
== END ==
LOC: M SFHCCLAY 08:01
PROVIDERS: ATTEND Family Medicine
DX: R53.82 Chronic fatigue, unspecified (principal); I10 Essential (primary) hypertension; L65.9 Nonscarring hair loss, unspecified; K58.1 Irritable bowel syndrome with constipation

== ENCOUNTER → 2021-04-07 | Outpatient (REF) | payer OTHER | LOC: M SFHCCLAY 07:58 | PROVIDERS: ATTEND Family Medicine | DX: Z11.1 Encounter for screening for respiratory tuberculosis (principal) ==

== ENCOUNTER → 2022-03-13 | Outpatient (CLI) | payer OTHER ==
[~2022-03-13] MED LIST changes: +LOSA25TA13; -LOSA25TA14
[2022-03-13 13:27] LABS: HEMATOCRIT 37.9 % (36.0-47.0); HEMOGLOBIN 12.6 g/dl (12.0-15.5); MEAN CORPUSCULAR HEMOGLOBIN 30.4 pg (27.0-33.0); MEAN CORPUSCULAR HGB CONC 33.2 g/dl (32.0-36.5); MEAN CORPUSCULAR VOLUME 91.5 fl (80.0-96.0); PLATELET COUNT, AUTOMATED 206 10^3/uL (150-450); RED BLOOD COUNT 4.14 10^6/uL (4.00-5.40); WHITE BLOOD COUNT 8.4 10^3/uL (4.0-10.0)
[2022-03-13 14:42] LABS: HEPATITIS B SURFACE ANTIGEN NEGATIVE (NEGATIVE); HEPATITIS C VIRUS ABY INDEX 0.1 INDEX (<0.8); HIV 1&2 SCREEN CENTAUR NEGATIVE (NEGATIVE)
[2022-03-13 15:06] LABS: GC DNA AMPLIFICATION NEGATIVE (NEGATIVE)
== END ==
LOC: M PLALAB 11:16
PROVIDERS: ATTEND Advanced Practice Midwife
DX: Z34.01 Encounter for supervision of normal first pregnancy, first trimester (principal)

== ENCOUNTER → 2022-04-18 | Outpatient (CLI) | payer OTHER | LOC: M PLALAB 13:28 | PROVIDERS: ATTEND Advanced Practice Midwife | DX: Z34.01 Encounter for supervision of normal first pregnancy, first trimester (principal) ==

== ENCOUNTER → 2022-05-30 | Outpatient (CLI) | payer OTHER ==
[~2022-05-30] MED LIST changes: -MAXA10TA14 PO; +RIZA10TA64 PO
== END ==
LOC: M WHC 12:38
PROVIDERS: ATTEND Obstetrics & Gynecology
DX: Z36.3 Encounter for antenatal screening for malformations (principal); Z3A.18 18 weeks gestation of pregnancy

== ENCOUNTER → 2022-07-06 | Outpatient (CLI) | payer OTHER | LOC: M WHC 15:12 | PROVIDERS: ATTEND Advanced Practice Midwife | DX: Z34.02 Encounter for supervision of normal first pregnancy, second trimester (principal) ==

== ENCOUNTER → 2022-07-24 | Outpatient (CLI) | payer OTHER ==
[2022-07-24 13:32] LABS: HEMATOCRIT 39.8 % (36.0-47.0); HEMOGLOBIN 13.1 g/dl (12.0-15.5); MEAN CORPUSCULAR HEMOGLOBIN 30.5 pg (27.0-33.0); MEAN CORPUSCULAR HGB CONC 32.9 g/dl (32.0-36.5); MEAN CORPUSCULAR VOLUME 92.8 fl (80.0-96.0); PLATELET COUNT, AUTOMATED 234 10^3/uL (150-450); RED BLOOD COUNT 4.29 10^6/uL (4.00-5.40); WHITE BLOOD COUNT 9.5 10^3/uL (4.0-10.0)
[2022-07-24 19:23] LABS: GC DNA AMPLIFICATION NEGATIVE (NEGATIVE)
== END ==
LOC: M PLALAB 09:33
PROVIDERS: ATTEND Advanced Practice Midwife
DX: Z34.02 Encounter for supervision of normal first pregnancy, second trimester (principal)

== ENCOUNTER → 2022-09-25 | Outpatient (REF) | payer OTHER, BC, MEDICAID | LOC: M SFHCWAGY 16:59 | PROVIDERS: ATTEND Advanced Practice Midwife | DX: Z34.03 Encounter for supervision of normal first pregnancy, third trimester (principal); Z36.85 Encounter for antenatal screening for Streptococcus B ==